=== PATIENT | male | born 1955 | race Caucasian/White ===

== ENCOUNTER 2016-08-30 14:17 | Emergency (ER) | payer MEDICARE, MEDICAID ==
[~2016-08-30] VITALS: Ht 177.8 cm; Wt 69.9 kg
[2016-08-30] MEDS ORDERED: PARO40TA87 PO (14:38)
[2016-08-30] MEDS ORDERED: LIPI20TA PO (14:38)
[2016-08-30] MEDS ORDERED: ASPI81TA85 PO (14:38)
[2016-08-30] MEDS ORDERED: AMLO5TAB2 PO (14:38)
[2016-08-30 16:05] VITALS: BP 113/69
== END 2016-08-30 18:15 | disposition home or self-care (01) ==
LOC: EDBD 14:17 → M ED 15:34
DX: F10.220 Alcohol dependence with intoxication, uncomplicated (principal); J44.9 Chronic obstructive pulmonary disease, unspecified; N40.0 Benign prostatic hyperplasia without lower urinary tract symptoms; E78.9 Disorder of lipoprotein metabolism, unspecified; F17.200 Nicotine dependence, unspecified, uncomplicated; Z88.0 Allergy status to penicillin; Z79.899 Other long term (current) drug therapy; Z79.82 Long term (current) use of aspirin
CPT/HCPCS: 36415; 99285; G0480

== ENCOUNTER → 2017-02-03 | Outpatient (CLI) | payer MEDICARE ==
[~2017-02-03] MED LIST: AMLO5TAB2 PO; ASPI81TA85 PO; LIPI20TA PO; PARO40TA3 PO
[2017-02-03 08:02] LABS: BASO % 0.5 % (0.0-1.0); EOS # 0.2 K/mm3 (0.0-0.50); EOS % 2.8 % (0.0-3.0); LYMPH # 1.4 K/mm3 (1.5-4.5); LYMPH % 21.8 % (24.0-44.0); MEAN CORPUSCULAR HEMOGLOBIN 34.5 pg (27.0-33.0); MEAN CORPUSCULAR HGB CONC 34.1 g/dl (32.0-36.5); MEAN CORPUSCULAR VOLUME 101.1 fl (80.0-96.0); MONO # 0.5 K/mm3 (0.0-0.8); MONO % 7.5 % (0.0-5.0); NEUTROPHILS # 4.2 K/mm3 (1.8-7.7); NEUTROPHILS % 64.2 % (36.0-66.0); RED CELL DISTRIBUTION WIDTH 12.5 % (11.5-14.5); WHITE BLOOD COUNT 6.6 K/mm3 (4.0-10.0)
[2017-02-03 08:30] LABS: ALBUMIN 3.7 GM/DL (3.2-5.2); ALBUMIN/GLOBULIN RATIO 1.28 (1.00-1.93); ALKALINE PHOSPHATASE 85 U/L (45-117); ALT/SGPT 72 U/L (12-78); ANION GAP 9 MEQ/L (8-16); AST/SGOT 61 U/L (15-37); BILIRUBIN,TOTAL 0.3 MG/DL (0.2-1.0); BLOOD UREA NITROGEN 9 MG/DL (7-18); CALCIUM LEVEL 9.4 MG/DL (8.5-10.1); CARBON DIOXIDE LEVEL 29 MEQ/L (21-32); CHLORIDE LEVEL 102 MEQ/L (98-107); CHOLESTEROL LEVEL 187 MG/DL (<200); CREATININE FOR GFR 0.83 MG/DL (0.70-1.30); GLOMERULAR FILTRATION RATE > 60.0 (>56); GLUCOSE, FASTING 91 MG/DL (70-105); POTASSIUM SERUM 4.8 MEQ/L (3.5-5.1); SODIUM LEVEL 140 MEQ/L (136-145); TOTAL PROTEIN 6.6 GM/DL (6.4-8.2); TRIGLYCERIDES LEVEL 67 MG/DL (<150)
--- NOTE | 2017-02-03 13:17 | REP ---
PA and lateral chest: Comparison is 07/06/2013. The lung palmer are clear. The cardiac size is normal The norma, mediastinum, and bony thorax are unremarkable. Impression: Negative PA and lateral chest. There is no interval change. Signed by Dominic Reese MD 02/03/2017 07:49 A
== END ==
LOC: M LAB 07:17
PROVIDERS: ATTEND Physician Assistant Medical
DX: I10 Essential (primary) hypertension (principal); E55.9 Vitamin D deficiency, unspecified; F10.10 Alcohol abuse, uncomplicated

== ENCOUNTER → 2017-09-29 | Outpatient (CLI) | payer MEDICARE ==
[2017-09-29 11:21] LABS: HEMATOCRIT 48.4 % (42.0-52.0); HEMOGLOBIN 16.5 g/dl (13.5-17.5); MEAN CORPUSCULAR HEMOGLOBIN 33.4 pg (27.0-33.0); MEAN CORPUSCULAR HGB CONC 34.1 g/dl (32.0-36.5); PLATELET COUNT, AUTOMATED 237 10^3/uL (150-450); RED BLOOD COUNT 4.94 10^6/uL (4.30-6.10); RED CELL DISTRIBUTION WIDTH 12.8 % (11.5-14.5)
[2017-09-29 11:58] LABS: ALBUMIN 3.7 GM/DL (3.2-5.2); ALBUMIN/GLOBULIN RATIO 1.12 (1.00-1.93); ALKALINE PHOSPHATASE 81 U/L (45-117); ALT/SGPT 49 U/L (12-78); ANION GAP 7 MEQ/L (8-16); AST/SGOT 39 U/L (7-37); BILIRUBIN,TOTAL 0.6 MG/DL (0.2-1.0); BLOOD UREA NITROGEN 13 MG/DL (7-18); CALCIUM LEVEL 9.4 MG/DL (8.8-10.2); CARBON DIOXIDE LEVEL 27 MEQ/L (21-32); CHLORIDE LEVEL 105 MEQ/L (98-107); CHOLESTEROL LEVEL 229 MG/DL (<200); CHOLESTEROL RISK RATIO 2.694 (<5); CREATININE FOR GFR 0.84 MG/DL (0.70-1.30); GLOMERULAR FILTRATION RATE > 60.0 (>49); GLUCOSE, FASTING 85 MG/DL (70-100); HDL CHOLESTEROL 85 MG/DL (>40); LDL CHOLESTEROL 128.6 MG/DL (<100); NON-HDL-C 144 MG/DL; SODIUM LEVEL 139 MEQ/L (136-145); THYROID STIMULATING HORMONE 0.569 uIU/ML (0.358-3.740); TRIGLYCERIDES LEVEL 77 MG/DL (<150)
[2017-09-29 12:00] LABS: POTASSIUM SERUM 5.2 MEQ/L (3.5-5.1)
[2017-09-29 12:11] LABS: TOTAL 25(OH) VITAMIN D 21.3 NG/ML (30.0-100.0)
== END ==
LOC: M LAB 10:25
DX: I10 Essential (primary) hypertension (principal); J44.9 Chronic obstructive pulmonary disease, unspecified; N40.0 Benign prostatic hyperplasia without lower urinary tract symptoms
CPT/HCPCS: 71046

== ENCOUNTER 2017-11-20 16:27 | Emergency (ER) | payer MEDICARE ==
[2017-11-20] MEDS: NS 1,000 ML IV (16:49)
[2017-11-20 16:54] LABS: BASO % 0.5 % (0.0-1.0); EOS # 0.2 10^3/uL (0.0-0.50); EOS % 1.9 % (0.0-3.0); HEMATOCRIT 41.7 % (42.0-52.0); HEMOGLOBIN 14.3 g/dl (13.5-17.5); IMMATURE GRANULOCYTE % 0.1 % (0-3.0); LYMPH # 1.7 10^3/uL (1.5-4.5); LYMPH % 19.8 % (24.0-44.0); MEAN CORPUSCULAR HGB CONC 34.3 g/dl (32.0-36.5); MEAN CORPUSCULAR VOLUME 99.3 fl (80.0-96.0); MONO # 0.7 10^3/uL (0.0-0.8); MONO % 8.6 % (0.0-5.0); NEUTROPHILS # 5.9 10^3/uL (1.8-7.7); NEUTROPHILS % 69.1 % (36.0-66.0); PLATELET COUNT, AUTOMATED 255 10^3/uL (150-450); RED CELL DISTRIBUTION WIDTH 12.7 % (11.5-14.5); WHITE BLOOD COUNT 8.5 10^3/uL (4.0-10.0)
[2017-11-20 17:09] LABS: INR 0.97
[2017-11-20 17:18] LABS: ANION GAP 8 MEQ/L (8-16); BLOOD UREA NITROGEN 11 MG/DL (7-18); CALCIUM LEVEL 8.3 MG/DL (8.8-10.2); CARBON DIOXIDE LEVEL 24 MEQ/L (21-32); CHLORIDE LEVEL 109 MEQ/L (98-107); CPK CREATINE PHOSPHOKINASE 190 U/L (39-308); CREATININE FOR GFR 1.02 MG/DL (0.70-1.30); ETHYL ALCOHOL (ETHANOL) 0.015 % (0.000-0.010); GLOMERULAR FILTRATION RATE > 60.0 (>49); GLUCOSE, FASTING 98 MG/DL (70-100); POTASSIUM SERUM 3.4 MEQ/L (3.5-5.1); SODIUM LEVEL 141 MEQ/L (136-145); TROPONIN I < 0.02 NG/ML (< 0.10)
[2017-11-20 17:24] LABS: CK-MB VALUE MASS 3.5 NG/ML (<3.6); MB/CK RELATIVE INDEX 1.84 (< OR =4); THYROID STIMULATING HORMONE 0.795 uIU/ML (0.358-3.740)
[2017-11-20 18:17] LABS: KETONE, URINE AUTO RFX NEGATIVE (NEGATIVE); NITRITE, URINE AUTO RFX NEGATIVE (NEGATIVE); RBC, URINE AUTO RFX 1 /HPF (0-3); SPECIFIC GRAVITY UR AUTO RFX 1.009 (1.002-1.035); SQUAM EPITHELIAL CELL UR AURFX 0 /HPF (0-6); WBC, URINE AUTO RFX 7 /HPF (0-3)
[2017-11-20 18:20] LABS: LEUKOCYTE ESTERASE UR AUTO RFX TRACE (NEGATIVE)
[2017-11-20 18:27] LABS: AMPHETAMINES LEVEL URINE NEGATIVE (NEGATIVE); BARBITURATES URINE NEGATIVE (NEGATIVE); BENZODIAZEPINES URINE NEGATIVE (NEGATIVE); CANNABINOIDS URINE POSITIVE (NEGATIVE); COCAINE METABOLITE URINE NEGATIVE (NEGATIVE); METHADONE URINE NEGATIVE (NEGATIVE); OPIATES URINE NEGATIVE (NEGATIVE); PHENCYCLIDINE URINE NEGATIVE (NEGATIVE)
== END 2017-11-20 19:29 | disposition home or self-care (01) ==
LOC: M ED 16:27
DX: R55 Syncope and collapse (principal); H81.10 Benign paroxysmal vertigo, unspecified ear; I10 Essential (primary) hypertension; Z88.0 Allergy status to penicillin; Z79.899 Other long term (current) drug therapy; Z79.82 Long term (current) use of aspirin
CPT/HCPCS: 93005

== ENCOUNTER → 2018-03-29 | Outpatient (CLI) | payer MEDICARE ==
[2018-03-29 09:23] LABS: HEMATOCRIT 45.6 % (42.0-52.0); HEMOGLOBIN 15.4 g/dl (13.5-17.5); MEAN CORPUSCULAR HEMOGLOBIN 32.9 pg (27.0-33.0); MEAN CORPUSCULAR HGB CONC 33.8 g/dl (32.0-36.5); MEAN CORPUSCULAR VOLUME 97.4 fl (80.0-96.0); PLATELET COUNT, AUTOMATED 251 10^3/uL (150-450); RED BLOOD COUNT 4.68 10^6/uL (4.30-6.10); RED CELL DISTRIBUTION WIDTH 12.9 % (11.5-14.5); WHITE BLOOD COUNT 7.6 10^3/uL (4.0-10.0)
[2018-03-29 09:55] LABS: ALBUMIN 3.6 GM/DL (3.2-5.2); ALBUMIN/GLOBULIN RATIO 1.09 (1.00-1.93); ALKALINE PHOSPHATASE 82 U/L (45-117); ALT/SGPT 27 U/L (12-78); ANION GAP 8 MEQ/L (8-16); AST/SGOT 19 U/L (7-37); BILIRUBIN,TOTAL 0.5 MG/DL (0.2-1.0); BLOOD UREA NITROGEN 10 MG/DL (7-18); CALCIUM LEVEL 9.4 MG/DL (8.8-10.2); CARBON DIOXIDE LEVEL 27 MEQ/L (21-32); CHLORIDE LEVEL 107 MEQ/L (98-107); CHOLESTEROL LEVEL 179 MG/DL (<200); CHOLESTEROL RISK RATIO 2.452 (<5); CREATININE FOR GFR 0.94 MG/DL (0.70-1.30); GLOMERULAR FILTRATION RATE > 60.0 (>49); GLUCOSE, FASTING 99 MG/DL (70-100); HDL CHOLESTEROL 73 MG/DL (>40); LDL CHOLESTEROL 87 MG/DL (<100); NON-HDL-C 106 MG/DL; POTASSIUM SERUM 4.7 MEQ/L (3.5-5.1); PROSTATIC SPECIFIC AG MONITOR 1.21 NG/ML (< 4.0); SODIUM LEVEL 142 MEQ/L (136-145); THYROID STIMULATING HORMONE 0.566 uIU/ML (0.358-3.740); TOTAL PROTEIN 6.9 GM/DL (6.4-8.2); TRIGLYCERIDES LEVEL 96 MG/DL (<150)
[2018-03-29 09:56] LABS: TOTAL 25(OH) VITAMIN D 95.1 NG/ML (30.0-100.0)
[2018-03-29 09:57] LABS: TESTOSTERONE 694 NG/DL (241-827)
== END ==
LOC: M LAB 08:42
DX: R53.83 Other fatigue (principal); N40.0 Benign prostatic hyperplasia without lower urinary tract symptoms; I10 Essential (primary) hypertension; Z79.899 Other long term (current) drug therapy
CPT/HCPCS: 84403

== ENCOUNTER 2018-06-08 07:04 | Emergency (ER) | payer MEDICARE ==
[2018-06-08] MEDS: NS 1,000 ML IV (07:44)
[2018-06-08 07:45] LABS: BASO # 0.1 10^3/uL (0.0-0.2); EOS # 0.2 10^3/uL (0.0-0.50); EOS % 3.2 % (0.0-3.0); HEMATOCRIT 45.8 % (42.0-52.0); HEMOGLOBIN 15.5 g/dl (13.5-17.5); IMMATURE GRANULOCYTE % 0.2 % (0-3.0); LYMPH # 1.3 10^3/uL (1.5-4.5); LYMPH % 22.7 % (24.0-44.0); MEAN CORPUSCULAR HEMOGLOBIN 32.8 pg (27.0-33.0); MEAN CORPUSCULAR HGB CONC 33.8 g/dl (32.0-36.5); MONO # 0.6 10^3/uL (0.0-0.8); MONO % 9.3 % (0.0-5.0); NEUTROPHILS # 3.8 10^3/uL (1.8-7.7); NEUTROPHILS % 63.6 % (36.0-66.0); PLATELET COUNT, AUTOMATED 239 10^3/uL (150-450); RED BLOOD COUNT 4.72 10^6/uL (4.30-6.10); RED CELL DISTRIBUTION WIDTH 13.1 % (11.5-14.5); WHITE BLOOD COUNT 5.9 10^3/uL (4.0-10.0)
[2018-06-08] MEDS: LOSARTAN 50 MG TAB PO (07:45)
[2018-06-08 07:56] LABS: INR 0.92; PROTHROMBIN TIME 12.4 SECONDS (12.1-14.4)
[2018-06-08 08:22] LABS: ALBUMIN 3.4 GM/DL (3.2-5.2); ALBUMIN/GLOBULIN RATIO 0.97 (1.00-1.93); ALKALINE PHOSPHATASE 78 U/L (45-117); ALT/SGPT 33 U/L (12-78); ANION GAP 6 MEQ/L (8-16); AST/SGOT 24 U/L (7-37); BILIRUBIN,DIRECT 0.2 MG/DL (0.0-0.2); BILIRUBIN,TOTAL 0.6 MG/DL (0.2-1.0); BLOOD UREA NITROGEN 6 MG/DL (7-18); CALCIUM LEVEL 8.9 MG/DL (8.8-10.2); CARBON DIOXIDE LEVEL 27 MEQ/L (21-32); CHLORIDE LEVEL 106 MEQ/L (98-107); CREATININE FOR GFR 0.94 MG/DL (0.70-1.30); GLOMERULAR FILTRATION RATE > 60.0 (>49); GLUCOSE, FASTING 93 MG/DL (70-100); POTASSIUM SERUM 3.9 MEQ/L (3.5-5.1); SODIUM LEVEL 139 MEQ/L (136-145); TOTAL PROTEIN 6.9 GM/DL (6.4-8.2)
[2018-06-08 08:23] LABS: ETHYL ALCOHOL (ETHANOL) < 0.003 % (0.000-0.010)
== END 2018-06-08 11:00 | disposition home or self-care (01) ==
LOC: M ED 07:04
DX: R19.7 Diarrhea, unspecified (principal); I10 Essential (primary) hypertension; M19.90 Unspecified osteoarthritis, unspecified site; F32.9 Major depressive disorder, single episode, unspecified; F17.200 Nicotine dependence, unspecified, uncomplicated; J44.9 Chronic obstructive pulmonary disease, unspecified
CPT/HCPCS: G0480

== ENCOUNTER → 2018-12-15 | Outpatient (CLI) | payer MEDICARE ==
[~2018-12-15] MED LIST changes: -AMLO5TAB2 PO; +AMLO5TAB6 PO
[2018-12-15 11:19] LABS: HEMOGLOBIN 14.4 g/dl (13.5-17.5); MEAN CORPUSCULAR HEMOGLOBIN 32.6 pg (27.0-33.0); MEAN CORPUSCULAR HGB CONC 32.7 g/dl (32.0-36.5); MEAN CORPUSCULAR VOLUME 99.5 fl (80.0-96.0); PLATELET COUNT, AUTOMATED 252 10^3/uL (150-450); RED BLOOD COUNT 4.42 10^6/uL (4.30-6.10); WHITE BLOOD COUNT 8.6 10^3/uL (4.0-10.0)
[2018-12-15 11:46] LABS: HEMOGLOBIN A1c 6.2 %
[2018-12-15 11:51] LABS: ALBUMIN 3.8 GM/DL (3.2-5.2); ALT/SGPT 37 U/L (12-78); BILIRUBIN,TOTAL 0.3 MG/DL (0.2-1.0); BLOOD UREA NITROGEN 11 MG/DL (7-18); CARBON DIOXIDE LEVEL 31 MEQ/L (21-32); CHLORIDE LEVEL 106 MEQ/L (98-107); CHOLESTEROL LEVEL 198 MG/DL (<200); CHOLESTEROL RISK RATIO 2.605 (<5); CREATININE FOR GFR 0.82 MG/DL (0.70-1.30); GLOMERULAR FILTRATION RATE > 60.0 (>49); GLUCOSE, FASTING 81 MG/DL (70-100); HDL CHOLESTEROL 76 MG/DL (>40); LDL CHOLESTEROL 106 MG/DL (<100); NON-HDL-C 122 MG/DL; POTASSIUM SERUM 4.7 MEQ/L (3.5-5.1); SODIUM LEVEL 141 MEQ/L (136-145); TESTOSTERONE 627 NG/DL (241-827); THYROID STIMULATING HORMONE 0.625 uIU/ML (0.358-3.740); TOTAL 25(OH) VITAMIN D 29.7 NG/ML (30.0-100.0); TOTAL PROTEIN 6.9 GM/DL (6.4-8.2); TRIGLYCERIDES LEVEL 80 MG/DL (<150)
--- NOTE | 2018-12-15 12:52 | ECGEPIP ---
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 THERE WAS GOOD R WAVE PROGRESSION Electronically Signed on 12-15-2018 12:52:48 EDT by Marco Chaparro
== END ==
LOC: M LAB 10:20
PROVIDERS: ATTEND Family Medicine
DX: R53.83 Other fatigue (principal); I10 Essential (primary) hypertension; J44.9 Chronic obstructive pulmonary disease, unspecified; E03.9 Hypothyroidism, unspecified; Z79.82 Long term (current) use of aspirin

== ENCOUNTER → 2018-12-23 | Outpatient (CLI) | payer MEDICARE ==
--- NOTE | 2018-12-23 14:12 | REPVR ---
EXAM: MR Head Without Contrast EXAM DATE/TIME: 12/23/2018 10:38 AM CLINICAL HISTORY: 63 years old, male; Pain; Headache; Tension; Patient HX: No priors patient having johnson's and dizziness -sf; Additional info: Headaches and dizziness TECHNIQUE: Imaging protocol: MR of the head without contrast. COMPARISON: No relevant prior studies available. FINDINGS: Brain: There are occasional nonspecific foci of high signal abnormality in the louis radiata and centrum semiovale. These are best seen on the flair images. These foci may represent areas of gliosis, demyelination, and/or chronic ischemic change. Ventricles: Normal. No ventriculomegaly. Bones/joints: Unremarkable. Soft tissues: Normal. Sinuses: There is mild sinus disease. Mastoid air cells: Normal as visualized. No mastoid effusion. Orbits: Unremarkable. IMPRESSION: No acute intracranial abnormality identified. Please refer to incidental findings in body of report. Electronically signed by: Russell Carter On 12/23/2018 14:12:04 PM
== END ==
LOC: M RAD 09:31
PROVIDERS: ATTEND Family Medicine
DX: R51 Headache (principal); R42 Dizziness and giddiness

== ENCOUNTER → 2021-05-08 | Outpatient (CLI) | payer MEDICARE ==
[~2021-05-08] MED LIST changes: +AMLO1TAB24 PO; -AMLO5TAB6 PO; -ASPI81TA85 PO; +ASPI81TA86 PO
--- NOTE | 2021-05-08 15:18 | REP ---
INDICATION: COPD COMPARISON: 09/29/2017 TECHNIQUE: PA and lateral. FINDINGS: The mediastinum and cardiac silhouette are normal. The lung palmer demonstrate chronic emphysematous changes without acute consolidation, effusion, or pneumothorax. The skeletal structures are intact and normal. IMPRESSION: No acute cardiopulmonary process. <Electronically signed by Bony Denis > 05/08/21 [id number]
== END ==
LOC: M RAD 14:50
PROVIDERS: ATTEND Family Medicine
DX: J44.9 Chronic obstructive pulmonary disease, unspecified (principal)

== ENCOUNTER → 2021-08-21 | Outpatient (CLI) | payer MEDICARE, MEDICAID ==
[2021-08-21 12:41] LABS: HEMATOCRIT 47.6 % (42.0-52.0); HEMOGLOBIN 15.5 g/dl (13.5-17.5); MEAN CORPUSCULAR HEMOGLOBIN 30.8 pg (27.0-33.0); MEAN CORPUSCULAR HGB CONC 32.6 g/dl (32.0-36.5); MEAN CORPUSCULAR VOLUME 94.4 fl (80.0-96.0); PLATELET COUNT, AUTOMATED 278 10^3/uL (150-450); RED BLOOD COUNT 5.04 10^6/uL (4.30-6.10); WHITE BLOOD COUNT 8.2 10^3/uL (4.0-10.0)
[2021-08-21 13:15] LABS: ALT/SGPT 38 U/L (12-78); BILIRUBIN,TOTAL 0.4 MG/DL (0.2-1.0); BLOOD UREA NITROGEN 12 MG/DL (7-18); CALCIUM LEVEL 10.3 MG/DL (8.8-10.2); CARBON DIOXIDE LEVEL 28 MEQ/L (21-32); CHLORIDE LEVEL 107 MEQ/L (98-107); CHOLESTEROL LEVEL 198 MG/DL (<200); CHOLESTEROL RISK RATIO 2.275 (<5); CREATININE FOR GFR 0.84 MG/DL (0.70-1.30); GLOMERULAR FILTRATION RATE > 60.0 (>49); GLUCOSE, FASTING 93 MG/DL (70-100); HDL CHOLESTEROL 87 MG/DL (>40); LDL CHOLESTEROL 85 MG/DL (<100); NON-HDL-C 111 MG/DL; SODIUM LEVEL 140 MEQ/L (136-145); THYROID STIMULATING HORMONE 0.744 uIU/ML (0.358-3.740); TOTAL PROTEIN 7.3 GM/DL (6.4-8.2); TRIGLYCERIDES LEVEL 128 MG/DL (<150)
[2021-08-21 13:30] LABS: HEMOGLOBIN A1c 5.5 %
== END ==
LOC: M RAD 11:34
PROVIDERS: ATTEND Family Medicine
DX: D64.9 Anemia, unspecified (principal); E78.00 Pure hypercholesterolemia, unspecified; Z12.5 Encounter for screening for malignant neoplasm of prostate
CPT/HCPCS: 36415; 71046; 80053; 80061; 83036; 84443; 85027; 93005; G0103

== ENCOUNTER 2021-11-04 17:39 | Emergency (ER) | payer MEDICARE, MEDICAID ==
[~2021-11-04] VITALS: Ht 175.3 cm; Wt 65.9 kg
[2021-11-04 20:21] LABS: BASO % 0.4 % (0.0-1.0); EOS # 0.2 10^3/uL (0.0-0.5); EOS % 2.8 % (0.0-3.0); HEMATOCRIT 49.1 % (42.0-52.0); HEMOGLOBIN 16.5 g/dl (13.5-17.5); LYMPH # 1.3 10^3/uL (1.5-5.0); LYMPH % 24.3 % (24.0-44.0); MEAN CORPUSCULAR HEMOGLOBIN 31.1 pg (27.0-33.0); MEAN CORPUSCULAR HGB CONC 33.6 g/dl (32.0-36.5); MEAN CORPUSCULAR VOLUME 92.6 fl (80.0-96.0); MONO # 0.5 10^3/uL (0.0-0.8); MONO % 8.6 % (2.0-8.0); NEUTROPHILS # 3.4 10^3/uL (1.5-8.5); NEUTROPHILS % 63.7 % (36.0-66.0); PLATELET COUNT, AUTOMATED 206 10^3/uL (150-450); WHITE BLOOD COUNT 5.3 10^3/uL (4.0-10.0)
[2021-11-04 20:41] LABS: AMPHETAMINES LEVEL URINE NEGATIVE (NEGATIVE); BARBITURATES URINE NEGATIVE (NEGATIVE); BENZODIAZEPINES URINE NEGATIVE (NEGATIVE); CANNABINOIDS URINE NEGATIVE (NEGATIVE); COCAINE METABOLITE URINE NEGATIVE (NEGATIVE); METHADONE URINE NEGATIVE (NEGATIVE); OPIATES URINE NEGATIVE (NEGATIVE); PHENCYCLIDINE URINE NEGATIVE (NEGATIVE)
[2021-11-04 20:55] LABS: BLOOD UREA NITROGEN 6 MG/DL (7-18); CALCIUM LEVEL 9.4 MG/DL (8.8-10.2); CARBON DIOXIDE LEVEL 22 MEQ/L (21-32); CHLORIDE LEVEL 106 MEQ/L (98-107); CREATININE FOR GFR 0.69 MG/DL (0.70-1.30); ETHYL ALCOHOL (ETHANOL) 0.145 % (0.000-0.010); FREE T4 1.16 NG/DL (0.76-1.46); GLOMERULAR FILTRATION RATE > 60.0 (>49); GLUCOSE, FASTING 88 MG/DL (70-100); MAGNESIUM LEVEL 2.3 MG/DL (1.8-2.4); SODIUM LEVEL 140 MEQ/L (136-145); THYROID STIMULATING HORMONE 0.587 uIU/ML (0.358-3.740)
[2021-11-04 21:45] VITALS: BP 164/99
== END 2021-11-05 01:22 | disposition home or self-care (01) ==
LOC: EDBD 17:39 → M ED 17:39
DX: R55 Syncope and collapse (principal); Z53.20 Procedure and treatment not carried out because of patient's decision for unspecified reasons; I10 Essential (primary) hypertension; F33.9 Major depressive disorder, recurrent, unspecified; Z88.0 Allergy status to penicillin; Z79.82 Long term (current) use of aspirin; Z79.899 Other long term (current) drug therapy

== ENCOUNTER 2022-03-09 10:29 | Emergency (ER) | payer MEDICARE, MEDICAID ==
[~2022-03-09] VITALS: Ht 177.8 cm; Wt 67.2 kg
[2022-03-09 10:30] VITALS: BP 132/79
== END 2022-03-09 10:43 | disposition left against medical advice (07) ==
LOC: M ED 10:29
DX: Z53.21 Procedure and treatment not carried out due to patient leaving prior to being seen by health care provider (principal)

== ENCOUNTER 2022-10-26 20:58 | Emergency (ER) | payer MEDICARE, MEDICAID ==
[~2022-10-26] VITALS: Ht 177.8 cm; Wt 67.0 kg
[2022-10-26] MEDS ORDERED: HYDR1CAP25 (21:26)
[2022-10-26] MEDS ORDERED: FLUO20CA22 (21:26)
[2022-10-26] MEDS ORDERED: RAMI1CAP22 (21:26)
[2022-10-26] MEDS ORDERED: TREL1AER (21:26)
[2022-10-26 21:57] LABS: HEMATOCRIT 43.7 % (42.0-52.0); HEMOGLOBIN 14.2 g/dl (13.5-17.5); MEAN CORPUSCULAR HEMOGLOBIN 32.5 pg (27.0-33.0); MEAN CORPUSCULAR HGB CONC 32.5 g/dl (32.0-36.5); PLATELET COUNT, AUTOMATED 233 10^3/uL (150-450); RED BLOOD COUNT 4.37 10^6/uL (4.30-6.10); WHITE BLOOD COUNT 8.2 10^3/uL (4.0-10.0)
[2022-10-26 22:00] LABS: AMPHETAMINES LEVEL URINE NEGATIVE (NEGATIVE); BARBITURATES URINE NEGATIVE (NEGATIVE); BENZODIAZEPINES URINE NEGATIVE (NEGATIVE); CANNABINOIDS URINE NEGATIVE (NEGATIVE); COCAINE METABOLITE URINE NEGATIVE (NEGATIVE); METHADONE URINE NEGATIVE (NEGATIVE); OPIATES URINE NEGATIVE (NEGATIVE); PHENCYCLIDINE URINE NEGATIVE (NEGATIVE)
[2022-10-26 22:17] LABS: ETHYL ALCOHOL (ETHANOL) 0.261 % (0.000-0.010)
[2022-10-26 22:19] LABS: ACETAMINOPHEN LEVEL < 2.0 UG/ML (10.0-20.0); ALBUMIN 3.8 G/DL (3.2-5.2); ALKALINE PHOSPHATASE 76 U/L (46-116); ALT/SGPT 23 U/L (7.0-40); AST/SGOT 31 U/L (<34); BILIRUBIN,DIRECT < 0.1 MG/DL (<0.4); BILIRUBIN,TOTAL 0.2 MG/DL (0.3-1.2); BLOOD UREA NITROGEN 8 MG/DL (9-23); CALCIUM LEVEL 9.1 MG/DL (8.3-10.6); CARBON DIOXIDE LEVEL 26 MMOL/L (20-31); CHLORIDE LEVEL 103 MMOL/L (98-107); CREATININE FOR GFR 0.96 MG/DL (0.70-1.30); GLOMERULAR FILTRATION RATE > 60.0 (>49); GLUCOSE, FASTING 98 MG/DL (74-106); POTASSIUM SERUM 3.3 MMOL/L (3.5-5.1); SALICYLATE LEVEL < 3.0 MG/DL (<30); SODIUM LEVEL 135 MMOL/L (136-145); TOTAL PROTEIN 6.5 G/DL (5.7-8.2)
[2022-10-26 22:23] LABS: THYROID STIMULATING HORMONE 0.633 uIU/ML (0.55-4.78)
[2022-10-27] MEDS ORDERED: LORazepam 2 MG TAB PO PRN (01:10)
[2022-10-27] MEDS ORDERED: VIST25CA PO (06:00)
[2022-10-27] MEDS ORDERED: RAMI1CAP22 PO (06:00)
[2022-10-27] MEDS ORDERED: VITMTA PO (06:00)
[2022-10-27] MEDS ORDERED: FLUO-96 PO (06:00)
[2022-10-27] MEDS ORDERED: TREL1AER INH (06:00)
[2022-10-27] MEDS ORDERED: BAYE325T13 PO (06:00)
[2022-10-27] MEDS ORDERED: HOME MED LIST COMPLETE! XX SCH (06:05)
[2022-10-27 06:49] VITALS: BP 169/90
[2022-10-27] MEDS ORDERED: FOLIC ACID 1MG TAB PO SCH (09:00)
[2022-10-27] MEDS ORDERED: MULTIVITAMINS/MINERALS THERAP 1 TAB PO SCH (09:00)
[2022-10-27] MEDS ORDERED: THIAMINE 100 MG TAB PO SCH (09:00)
== END 2022-10-27 06:51 | disposition home or self-care (01) ==
LOC: EDBD 20:58 → M ED 20:58
DX: F10.129 Alcohol abuse with intoxication, unspecified (principal); I10 Essential (primary) hypertension; Z88.0 Allergy status to penicillin; Z79.899 Other long term (current) drug therapy; Z79.82 Long term (current) use of aspirin

== ENCOUNTER 2023-01-13 12:22 | Inpatient (IN) | payer MEDICARE ==
[~2023-01-13] VITALS: Ht 177.8 cm; Wt 53.9 kg
[2023-01-13] MEDS: MULTIVITAMINS/MINERALS THERAP 1 TAB PO SCH (09:00)
[2023-01-13] MEDS: FOLIC ACID 1MG TAB PO SCH (09:00)
[~2023-01-13 12:22] MED LIST changes: +BAYE325T13 PO; +BETA5OI TOP; +FLUO-96 PO; +FLUO20CA22; +HYDR1CAP25; +PANT40TA29 PO; +RAMI1CAP22; +RAMI1CAP22 PO; +SUCR1TA PO; +TREL1AER; +TREL1AER INH; +VIST25CA PO; +VITMTA PO
[2023-01-13 13:57] LABS: HEMATOCRIT 35.3 % (42.0-52.0); HEMOGLOBIN 11.1 g/dl (13.5-17.5); MEAN CORPUSCULAR HEMOGLOBIN 29.6 pg (27.0-33.0); MEAN CORPUSCULAR HGB CONC 31.4 g/dl (32.0-36.5); MEAN CORPUSCULAR VOLUME 94.1 fl (80.0-96.0); PLATELET COUNT, AUTOMATED 268 10^3/uL (150-450); RED BLOOD COUNT 3.75 10^6/uL (4.30-6.10); WHITE BLOOD COUNT 6.1 10^3/uL (4.0-10.0)
[2023-01-13 14:20] LABS: CANNABINOIDS URINE NEGATIVE (NEGATIVE); PHENCYCLIDINE URINE NEGATIVE (NEGATIVE)
[2023-01-13 14:21] LABS: AMPHETAMINES LEVEL URINE NEGATIVE (NEGATIVE); BARBITURATES URINE NEGATIVE (NEGATIVE); BENZODIAZEPINES URINE NEGATIVE (NEGATIVE); COCAINE METABOLITE URINE NEGATIVE (NEGATIVE); ETHYL ALCOHOL (ETHANOL) < 0.003 % (0.000-0.010); METHADONE URINE NEGATIVE (NEGATIVE); OPIATES URINE NEGATIVE (NEGATIVE)
[2023-01-13 14:23] LABS: ACETAMINOPHEN LEVEL < 2.0 UG/ML (10.0-20.0); ALBUMIN 3.7 G/DL (3.2-5.2); ALKALINE PHOSPHATASE 101 U/L (46-116); ALT/SGPT 50 U/L (7.0-40); AST/SGOT 26 U/L (<34); BILIRUBIN,DIRECT 0.2 MG/DL (<0.4); BILIRUBIN,TOTAL 0.6 MG/DL (0.3-1.2); BLOOD UREA NITROGEN 10 MG/DL (9-23); CALCIUM LEVEL 9.9 MG/DL (8.3-10.6); CARBON DIOXIDE LEVEL 26 MMOL/L (20-31); CHLORIDE LEVEL 105 MMOL/L (98-107); GLOMERULAR FILTRATION RATE > 60.0 (>49); GLUCOSE, FASTING 99 MG/DL (74-106); POTASSIUM SERUM 4.1 MMOL/L (3.5-5.1); SALICYLATE LEVEL < 3.0 MG/DL (<30); SODIUM LEVEL 139 MMOL/L (136-145); TOTAL PROTEIN 6.5 G/DL (5.7-8.2)
[2023-01-13 14:26] LABS: THYROID STIMULATING HORMONE 0.754 uIU/ML (0.55-4.78)
[2023-01-13] MEDS ORDERED: diphenhydrAMINE 25MG CAP PO PRN (17:05)
[2023-01-13] MEDS ORDERED: LORazepam 2 MG TAB PO PRN (17:05)
[2023-01-13] MEDS ORDERED: MOM 30ML SUSPENSION UDC PO PRN (17:05)
[2023-01-13] MEDS ORDERED: ACETAMINOPHEN TAB 650MG DOSE (2X325MG) PO PRN (17:05)
[2023-01-13] MEDS ORDERED: MAALOX 30 ML SUSP *UDC PO PRN (17:05)
[2023-01-13] MEDS ORDERED: IBUPROFEN 400MG TAB PO PRN (17:05)
[2023-01-13] MEDS ORDERED: NICOTINE 21MG/24HR 1 EA TRANSDERMAL TD PRN (17:05)
[2023-01-13] MEDS: THIAMINE 100 MG TAB PO SCH (19:54)
[2023-01-13] MEDS: PANTOPRAZOLE 40MG TAB (PROTONIX) PO SCH (19:54)
[2023-01-13] MEDS ORDERED: HOME MED LIST COMPLETE! XX SCH (20:30)
[2023-01-13 21:24] VITALS: BP 148/88; TEMP 98.3; O2SAT 100
[2023-01-13] MEDS: SUCRALFATE 1 GM TAB PO SCH (21:54)
[2023-01-13 22:13] VITALS: BP 148/88
[2023-01-14 06:57] VITALS: BP 182/90
[2023-01-14 07:01] VITALS: BP 183/78; TEMP 96.3; O2SAT 100
[2023-01-14 08:24] VITALS: BP 138/88
[2023-01-14] MEDS: PANTOPRAZOLE 40MG TAB (PROTONIX) PO SCH ×2 (08:30→21:22)
[2023-01-14] MEDS: FOLIC ACID 1MG TAB PO SCH (08:30)
[2023-01-14] MEDS: SUCRALFATE 1 GM TAB PO SCH ×4 (08:30→21:22)
[2023-01-14] MEDS: THIAMINE 100 MG TAB PO SCH ×2 (08:30→21:22)
[2023-01-14] MEDS: FLUoxetine 20MG CAP PO SCH (08:30)
[2023-01-14] MEDS: ATORVASTATIN 20 MG TAB PO SCH (08:30)
[2023-01-14] MEDS: MULTIVITAMINS/MINERALS THERAP 1 TAB PO SCH (08:30)
[2023-01-14] MEDS: ramipriL 1.25 MG CAP PO SCH (10:09)
[2023-01-14 10:10] VITALS: BP 138/86
[2023-01-14 14:40] VITALS: BP 143/74
[2023-01-14 18:02] VITALS: BP 143/75; TEMP 97.6
[2023-01-15 06:13] VITALS: BP 148/86; TEMP 97; O2SAT 100
[2023-01-15] MEDS ORDERED: PREVNAR-20 VACCINE 0.5ML SYRINGE IM.IMMUN ONE (09:00)
[2023-01-15] MEDS: MULTIVITAMINS/MINERALS THERAP 1 TAB PO SCH (09:19)
[2023-01-15] MEDS: THIAMINE 100 MG TAB PO SCH ×2 (09:19→21:29)
[2023-01-15] MEDS: FLUoxetine 20MG CAP PO SCH (09:19)
[2023-01-15] MEDS: PANTOPRAZOLE 40MG TAB (PROTONIX) PO SCH ×2 (09:19→21:29)
[2023-01-15] MEDS: ATORVASTATIN 20 MG TAB PO SCH (09:20)
[2023-01-15] MEDS: ramipriL 1.25 MG CAP PO SCH (09:20)
[2023-01-15] MEDS: SUCRALFATE 1 GM TAB PO SCH ×4 (09:20→21:29)
[2023-01-15] MEDS: FOLIC ACID 1MG TAB PO SCH (09:20)
[2023-01-15 14:30] VITALS: BP 150/96
[2023-01-15 18:00] VITALS: BP 150/96; TEMP 97.4; O2SAT 100
[2023-01-15] MEDS: traZODone 50 MG TAB PO PRN (21:29)
[2023-01-16 06:27] VITALS: BP 144/82; TEMP 97.3; O2SAT 100
[2023-01-16] MEDS: FOLIC ACID 1MG TAB PO SCH (09:04)
[2023-01-16] MEDS: FLUoxetine 20MG CAP PO SCH (09:04)
[2023-01-16] MEDS: ATORVASTATIN 20 MG TAB PO SCH (09:04)
[2023-01-16] MEDS: SUCRALFATE 1 GM TAB PO SCH ×4 (09:04→21:02)
[2023-01-16] MEDS: ramipriL 1.25 MG CAP PO SCH (09:05)
[2023-01-16] MEDS: MULTIVITAMINS/MINERALS THERAP 1 TAB PO SCH (09:05)
[2023-01-16] MEDS: PANTOPRAZOLE 40MG TAB (PROTONIX) PO SCH ×2 (09:05→21:02)
[2023-01-16 18:00] VITALS: BP 126/58; TEMP 98.4; O2SAT 100
[2023-01-16] MEDS: traZODone 50 MG TAB PO PRN (21:02)
[2023-01-17 06:01] VITALS: BP 148/74; TEMP 97.4; O2SAT 98
[2023-01-17 09:44] VITALS: BP 110/66
[2023-01-17] MEDS: MULTIVITAMINS/MINERALS THERAP 1 TAB PO SCH (09:45)
[2023-01-17] MEDS: ramipriL 1.25 MG CAP PO SCH (09:45)
[2023-01-17] MEDS: FOLIC ACID 1MG TAB PO SCH (09:46)
[2023-01-17] MEDS: PANTOPRAZOLE 40MG TAB (PROTONIX) PO SCH ×2 (09:46→20:51)
[2023-01-17] MEDS: ATORVASTATIN 20 MG TAB PO SCH (09:46)
[2023-01-17] MEDS: FLUoxetine 20MG CAP PO SCH (09:46)
[2023-01-17] MEDS: SUCRALFATE 1 GM TAB PO SCH ×4 (10:22→20:51)
[2023-01-17 17:58] VITALS: BP 140/90; TEMP 97.6; O2SAT 98
[2023-01-18] MEDS: SUCRALFATE 1 GM TAB PO SCH ×4 (06:39→21:16)
[2023-01-18 06:46] VITALS: BP 149/70; TEMP 97.8; O2SAT 99
[2023-01-18] MEDS: ramipriL 1.25 MG CAP PO SCH (08:59)
[2023-01-18] MEDS: ATORVASTATIN 20 MG TAB PO SCH (09:00)
[2023-01-18] MEDS: MULTIVITAMINS/MINERALS THERAP 1 TAB PO SCH (09:00)
[2023-01-18] MEDS: PANTOPRAZOLE 40MG TAB (PROTONIX) PO SCH ×2 (09:00→21:16)
[2023-01-18] MEDS: FOLIC ACID 1MG TAB PO SCH (09:00)
[2023-01-18] MEDS: FLUoxetine 20MG CAP PO SCH (09:00)
[2023-01-18 16:25] VITALS: BP 154/80; TEMP 97.5; O2SAT 100
[2023-01-19] MEDS: SUCRALFATE 1 GM TAB PO SCH ×4 (06:39→21:03)
[2023-01-19 06:51] VITALS: BP 178/98; TEMP 97.5; O2SAT 99
[2023-01-19 06:55] VITALS: BP 140/82
[2023-01-19 07:09] VITALS: BP 188/83
[2023-01-19] MEDS ORDERED: **hydrALAZINE HCL** 25 MG TAB PO PRN (07:10)
[2023-01-19] MEDS: ramipriL 5 MG CAP PO SCH (09:00)
[2023-01-19 09:04] VITALS: BP 102/56
[2023-01-19] MEDS: ATORVASTATIN 20 MG TAB PO SCH (09:08)
[2023-01-19] MEDS: MULTIVITAMINS/MINERALS THERAP 1 TAB PO SCH (09:08)
[2023-01-19] MEDS: PANTOPRAZOLE 40MG TAB (PROTONIX) PO SCH ×2 (09:08→21:02)
[2023-01-19] MEDS: FOLIC ACID 1MG TAB PO SCH (09:08)
[2023-01-19] MEDS: FLUoxetine 20MG CAP PO SCH (09:08)
[2023-01-19 16:38] VITALS: BP 143/76; TEMP 98.6; O2SAT 100
[2023-01-20 06:19] VITALS: BP 150/90; TEMP 97.7; O2SAT 99
[2023-01-20] MEDS: SUCRALFATE 1 GM TAB PO SCH ×4 (06:48→20:17)
[2023-01-20] MEDS: PANTOPRAZOLE 40MG TAB (PROTONIX) PO SCH ×2 (08:44→20:17)
[2023-01-20] MEDS: FLUoxetine 20MG CAP PO SCH (08:44)
[2023-01-20] MEDS: ramipriL 5 MG CAP PO SCH (08:44)
[2023-01-20] MEDS: MULTIVITAMINS/MINERALS THERAP 1 TAB PO SCH (08:44)
[2023-01-20] MEDS: FOLIC ACID 1MG TAB PO SCH (08:44)
[2023-01-20] MEDS: ATORVASTATIN 20 MG TAB PO SCH (08:44)
[2023-01-20 17:35] VITALS: BP 132/62; TEMP 96.9; O2SAT 98
[2023-01-20] MEDS: traZODone 50 MG TAB PO PRN (21:20)
[2023-01-21 06:25] VITALS: BP 140/70; TEMP 96.9; O2SAT 100
[2023-01-21] MEDS: SUCRALFATE 1 GM TAB PO SCH (06:36)
[2023-01-21 09:26] VITALS: BP 121/77
[2023-01-21] MEDS: PANTOPRAZOLE 40MG TAB (PROTONIX) PO SCH (09:26)
[2023-01-21] MEDS: ATORVASTATIN 20 MG TAB PO SCH (09:26)
[2023-01-21] MEDS: FOLIC ACID 1MG TAB PO SCH (09:26)
[2023-01-21] MEDS: MULTIVITAMINS/MINERALS THERAP 1 TAB PO SCH (09:26)
[2023-01-21] MEDS: ramipriL 5 MG CAP PO SCH (09:26)
[2023-01-21] MEDS: FLUoxetine 20MG CAP PO SCH (09:26)
[2023-01-21] MEDS ORDERED: NICO21PAT TD (09:54)
[2023-01-21] MEDS ORDERED: ALTA1CAP3 PO (09:54)
[2023-01-21] MEDS ORDERED: HYDR25TA PO (09:54)
[2023-01-21] MEDS ORDERED: FLUO40CA PO (09:54)
[2023-01-21] MEDS ORDERED: TRAZ-252 PO (09:54)
== END 2023-01-21 12:40 | disposition home or self-care (01) | DRG 885 ==
LOC: M ED 12:22 → M ED INP 17:11 → M PSY 20:52
PROVIDERS: ADMIT Psychiatry & Neurology Psychiatry; ATTEND Student in an Organized Health Care Education/Training Program
DX: F33.3 Major depressive disorder, recurrent, severe with psychotic symptoms (principal); F10.10 Alcohol abuse, uncomplicated; Z91.52 Personal history of nonsuicidal self-harm; E78.5 Hyperlipidemia, unspecified; I10 Essential (primary) hypertension; F17.200 Nicotine dependence, unspecified, uncomplicated; Z88.0 Allergy status to penicillin; Z79.899 Other long term (current) drug therapy; R41.89 Other symptoms and signs involving cognitive functions and awareness

== ENCOUNTER 2023-02-25 10:50 | Emergency (ER) | payer MEDICARE ==
[~2023-02-25] VITALS: Ht 177.8 cm; Wt 50.6 kg
[~2023-02-25 10:50] MED LIST changes: +ALTA1CAP3 PO; +FLUO40CA PO; +HYDR25TA PO; +NICO21PAT TD; +TRAZ-252 PO
[2023-02-25] MEDS ORDERED: IBUPROFEN 600MG TAB PO ONE (12:45)
[2023-02-25] MEDS ORDERED: BACITRACIN OINTMENT 30GM TUBE TOP STA (12:47)
[2023-02-25] MEDS ORDERED: BOOSTRIX VACCINE (TETANUS/DIPHTH/ACEL. PERTUSSIS) 0.5ML SYR IM ONE (12:50)
[2023-02-25] MEDS ORDERED: BACI500O8 TOP (13:09)
[2023-02-25] MEDS ORDERED: IBUP-1022 PO (13:17)
[2023-02-25 13:21] VITALS: BP 156/93; TEMP 97.8; O2SAT 100
[2023-02-25] MEDS ORDERED: BACIOIN5 OD (18:33)
== END 2023-02-25 13:23 | disposition home or self-care (01) ==
LOC: M ED 10:50
DX: S90.852A Superficial foreign body, left foot, initial encounter (principal); M79.674 Pain in right toe(s); M79.675 Pain in left toe(s); V18.0XXA Pedal cycle driver injured in noncollision transport accident in nontraffic accident, initial encounter; Z23 Encounter for immunization; I10 Essential (primary) hypertension; E78.5 Hyperlipidemia, unspecified; G93.41 Metabolic encephalopathy; Z88.0 Allergy status to penicillin; F17.200 Nicotine dependence, unspecified, uncomplicated

== ENCOUNTER 2023-03-01 06:41 | Emergency (ER) | payer MEDICARE ==
[~2023-03-01] VITALS: Ht 179.1 cm; Wt 60.0 kg
[~2023-03-01 06:41] MED LIST changes: +BACI500O8 TOP; +BACIOIN5 OD; +IBUP-1022 PO
[2023-03-01 07:37] LABS: HEMATOCRIT 40.2 % (42.0-52.0); HEMOGLOBIN 12.4 g/dl (13.5-17.5); MEAN CORPUSCULAR HEMOGLOBIN 29.1 pg (27.0-33.0); MEAN CORPUSCULAR HGB CONC 30.8 g/dl (32.0-36.5); MEAN CORPUSCULAR VOLUME 94.4 fl (80.0-96.0); PLATELET COUNT, AUTOMATED 310 10^3/uL (150-450); RED BLOOD COUNT 4.26 10^6/uL (4.30-6.10); WHITE BLOOD COUNT 8.7 10^3/uL (4.0-10.0)
[2023-03-01 08:06] LABS: ETHYL ALCOHOL (ETHANOL) < 0.003 % (0.000-0.010)
[2023-03-01 08:07] LABS: ACETAMINOPHEN LEVEL < 2.0 UG/ML (10.0-20.0); ALBUMIN 3.7 G/DL (3.2-5.2); ALKALINE PHOSPHATASE 91 U/L (46-116); ALT/SGPT 38 U/L (7.0-40); AST/SGOT 55 U/L (<34); BILIRUBIN,DIRECT 0.1 MG/DL (<0.4); BILIRUBIN,TOTAL 0.4 MG/DL (0.3-1.2); BLOOD UREA NITROGEN 17 MG/DL (9-23); CALCIUM LEVEL 9.6 MG/DL (8.3-10.6); CARBON DIOXIDE LEVEL 23 MMOL/L (20-31); CHLORIDE LEVEL 104 MMOL/L (98-107); CREATININE FOR GFR 0.66 MG/DL (0.70-1.30); GLOMERULAR FILTRATION RATE > 60.0 (>49); GLUCOSE, FASTING 78 MG/DL (74-106); POTASSIUM SERUM 4.4 MMOL/L (3.5-5.1); SALICYLATE LEVEL < 3.0 MG/DL (<30); SODIUM LEVEL 140 MMOL/L (136-145); TOTAL PROTEIN 6.6 G/DL (5.7-8.2)
[2023-03-01] MEDS ORDERED: MED REC IN PROGRESS XX SCH (08:20)
[2023-03-01] MEDS ORDERED: FLUO40CA PO (08:31)
[2023-03-01] MEDS ORDERED: SUCR1TA PO (08:31)
[2023-03-01] MEDS ORDERED: HOME MED LIST COMPLETE! XX SCH (08:35)
[2023-03-01] MEDS: ramipriL 5 MG CAP PO SCH (09:00)
[2023-03-01 09:36] LABS: APPEARANCE, URINE CLEAR (CLEAR); BACTERIA, URINE AUTO NEGATIVE (NEGATIVE); BILIRUBIN, URINE AUTO NEGATIVE (NEGATIVE); BLOOD, URINE BLOOD 1+ (NEGATIVE); COLOR, URINE YELLOW (YELLOW); GLUCOSE, URINE (UA) AUTO NEGATIVE (NEGATIVE); KETONE, URINE AUTO 2+ mg/dL (NEGATIVE); LEUKOCYTE ESTERASE, URINE AUTO TRACE (NEGATIVE); MUCUS, URINE SMALL (NEGATIVE); NITRITE, URINE AUTO NEGATIVE (NEGATIVE); PROTEIN, URINE AUTO NEGATIVE (NEGATIVE); RBC, URINE AUTO 6 /HPF (0-3); SPECIFIC GRAVITY URINE AUTO 1.017 (1.002-1.035); SQUAMOUS EPITHELIAL CELL UR AU 1 /HPF (0-6); UROBILINOGEN, URINE AUTO 0.2 mg/dL (0.0-2.0); WBC, URINE AUTO 14 /HPF (0-3)
[2023-03-01 09:58] LABS: AMPHETAMINES LEVEL URINE NEGATIVE (NEGATIVE); BARBITURATES URINE NEGATIVE (NEGATIVE); BENZODIAZEPINES URINE NEGATIVE (NEGATIVE); CANNABINOIDS URINE NEGATIVE (NEGATIVE); COCAINE METABOLITE URINE NEGATIVE (NEGATIVE); METHADONE URINE NEGATIVE (NEGATIVE); OPIATES URINE NEGATIVE (NEGATIVE); PHENCYCLIDINE URINE NEGATIVE (NEGATIVE)
[2023-03-01] MEDS ORDERED: diphenhydrAMINE 25MG CAP PO PRN (12:15)
[2023-03-01] MEDS ORDERED: ACETAMINOPHEN TAB 650MG DOSE (2X325MG) PO PRN (12:15)
[2023-03-01] MEDS ORDERED: traZODone 50 MG TAB PO PRN (12:15)
[2023-03-01] MEDS ORDERED: MOM 30ML SUSPENSION UDC PO PRN (12:15)
[2023-03-01] MEDS ORDERED: IBUPROFEN 400MG TAB PO PRN (12:15)
[2023-03-01] MEDS ORDERED: MAALOX 30 ML SUSP *UDC PO PRN (12:15)
[2023-03-01] MEDS ORDERED: LORazepam 1 MG TAB PO ONE (15:55)
[2023-03-01] MEDS ORDERED: IBUP-1022 PO (18:25)
[2023-03-01] MEDS ORDERED: PANT40TA29 PO (18:26)
[2023-03-01] MEDS ORDERED: RAMI1CAP24 PO (18:28)
[2023-03-01] MEDS ORDERED: TRAZ-186 PO (18:28)
[2023-03-01] MEDS ORDERED: HYDR-3910 PO (18:32)
[2023-03-02] MEDS ORDERED: LORazepam 1 MG TAB PO STA (06:49)
[2023-03-02] MEDS ORDERED: SUCRALFATE 1 GM TAB PO SCH (07:30)
[2023-03-02] MEDS ORDERED: ADVAIR HFA 115/21MCG INHALER INH SCH (08:00)
[2023-03-02] MEDS ORDERED: TIOTROPIUM INHALER/CAPSULE (SPIRIVA) INH SCH (08:00)
[2023-03-02] MEDS ORDERED: FLUoxetine 20MG CAP PO SCH (09:00)
[2023-03-02] MEDS ORDERED: POLYSPORIN OPHTH OINT 3.5 GM OD SCH (09:00)
[2023-03-02] MEDS ORDERED: PANTOPRAZOLE 40MG TAB (PROTONIX) PO SCH (09:00)
[2023-03-02] MEDS ORDERED: ATORVASTATIN 20 MG TAB PO SCH (09:00)
[2023-03-02 10:06] VITALS: BP 141/90
[2023-03-02] MEDS: ramipriL 5 MG CAP PO SCH (10:06)
[2023-03-02 10:35] VITALS: BP 191/95; TEMP 98; O2SAT 99
== END 2023-03-02 11:05 ==
LOC: M ED 06:41 → M ED INP 12:11 → UNDOADMIN 12:11 → CANBEDREQ 15:11 → M ED 03-02 11:05
DX: F32.A Depression, unspecified (principal); I25.2 Old myocardial infarction; I10 Essential (primary) hypertension; E78.5 Hyperlipidemia, unspecified; F10.10 Alcohol abuse, uncomplicated; Z88.0 Allergy status to penicillin; Z79.02 Long term (current) use of antithrombotics/antiplatelets; Z79.1 Long term (current) use of non-steroidal anti-inflammatories (NSAID); Z79.899 Other long term (current) drug therapy

== ENCOUNTER 2023-04-14 12:23 | Inpatient (IN) | payer MEDICARE ==
[~2023-04-14] VITALS: Ht 177.8 cm; Wt 51.4 kg
[~2023-04-14 12:23] MED LIST changes: +HYDR-3910 PO; +RAMI1CAP24 PO; +TRAZ-186 PO
[2023-04-14] MEDS ORDERED: NS 1,000 ML IV ONE (13:00)
[2023-04-14] MEDS ORDERED: MED REC IN PROGRESS XX SCH (13:05)
[2023-04-14 14:09] LABS: HEMATOCRIT 32.9 % (42.0-52.0); HEMOGLOBIN 10.4 g/dl (13.5-17.5); MEAN CORPUSCULAR HEMOGLOBIN 28.5 pg (27.0-33.0); MEAN CORPUSCULAR HGB CONC 31.6 g/dl (32.0-36.5); MEAN CORPUSCULAR VOLUME 90.1 fl (80.0-96.0); PLATELET COUNT, AUTOMATED 234 10^3/uL (150-450); RED BLOOD COUNT 3.65 10^6/uL (4.30-6.10); WHITE BLOOD COUNT 5.6 10^3/uL (4.0-10.0)
[2023-04-14 14:35] LABS: ETHYL ALCOHOL (ETHANOL) 0.006 % (0.000-0.010)
[2023-04-14 14:36] LABS: ALBUMIN 3.2 G/DL (3.2-5.2); ALKALINE PHOSPHATASE 80 U/L (46-116); ALT/SGPT 17 U/L (7.0-40); AST/SGOT 25 U/L (<34); BILIRUBIN,DIRECT 0.2 MG/DL (<0.4); BILIRUBIN,TOTAL 0.4 MG/DL (0.3-1.2); BLOOD UREA NITROGEN 21 MG/DL (9-23); CALCIUM LEVEL 9.3 MG/DL (8.3-10.6); CARBON DIOXIDE LEVEL 22 MMOL/L (20-31); CHLORIDE LEVEL 99 MMOL/L (98-107); GLOMERULAR FILTRATION RATE > 60.0 (>49); GLUCOSE, FASTING 93 MG/DL (74-106); SALICYLATE LEVEL < 3.0 MG/DL (<30); SODIUM LEVEL 137 MMOL/L (136-145); TOTAL PROTEIN 6.1 G/DL (5.7-8.2)
[2023-04-14 14:39] LABS: THYROID STIMULATING HORMONE 0.755 uIU/ML (0.55-4.78)
[2023-04-14 15:01] LABS: AMPHETAMINES LEVEL URINE NEGATIVE (NEGATIVE); BARBITURATES URINE NEGATIVE (NEGATIVE); CANNABINOIDS URINE NEGATIVE (NEGATIVE); COCAINE METABOLITE URINE NEGATIVE (NEGATIVE); METHADONE URINE NEGATIVE (NEGATIVE); OPIATES URINE NEGATIVE (NEGATIVE); PHENCYCLIDINE URINE NEGATIVE (NEGATIVE)
[2023-04-14 15:02] LABS: BENZODIAZEPINES URINE NEGATIVE (NEGATIVE)
[2023-04-14] MEDS ORDERED: ramipriL 1.25 MG CAP PO SCH (16:00)
[2023-04-14] MEDS ORDERED: **hydrALAZINE HCL** 25 MG TAB PO PRN (16:35)
[2023-04-14] MEDS ORDERED: diphenhydrAMINE 25MG CAP PO PRN (16:35)
[2023-04-14] MEDS ORDERED: MAALOX 30 ML SUSP *UDC PO PRN (16:35)
[2023-04-14] MEDS ORDERED: IBUPROFEN 400MG TAB PO PRN (16:35)
[2023-04-14] MEDS ORDERED: traZODone 50 MG TAB PO PRN (16:35)
[2023-04-14] MEDS ORDERED: HOME MED LIST COMPLETE! XX SCH (16:40)
[2023-04-14 22:15] VITALS: BP 119/62; TEMP 98; O2SAT 98
[2023-04-15 06:07] VITALS: BP 129/63; TEMP 98.6; O2SAT 97
[2023-04-15] MEDS ORDERED: ramipriL 5 MG CAP PO SCH (09:00)
[2023-04-15] MEDS: FLUoxetine 10 MG CAP PO SCH (11:24)
[2023-04-15] MEDS ORDERED: SUCRALFATE 1 GM TAB PO SCH (13:00)
[2023-04-15] MEDS: SUCRALFATE 1 GM TAB PO SCH ×3 (13:08→21:33)
[2023-04-15] MEDS: PANTOPRAZOLE 40MG TAB (PROTONIX) PO SCH ×2 (13:11→21:33)
[2023-04-15 14:35] VITALS: BP 92/58; TEMP 98.3; O2SAT 95
[2023-04-15] MEDS: ramipriL 1.25 MG CAP PO SCH (14:36)
[2023-04-15] MEDS: ACETAMINOPHEN TAB 650MG DOSE (2X325MG) PO PRN (17:23)
[2023-04-15] MEDS: risperiDONE 0.5 MG TAB PO SCH (21:33)
[2023-04-16] MEDS: SUCRALFATE 1 GM TAB PO SCH ×4 (06:34→21:22)
[2023-04-16 06:38] VITALS: BP 104/56; TEMP 96.9; O2SAT 97
[2023-04-16] MEDS: ramipriL 1.25 MG CAP PO SCH (09:00)
[2023-04-16] MEDS: ATORVASTATIN 20 MG TAB PO SCH (09:21)
[2023-04-16] MEDS: FLUoxetine 10 MG CAP PO SCH (09:21)
[2023-04-16] MEDS: PANTOPRAZOLE 40MG TAB (PROTONIX) PO SCH ×2 (09:21→21:22)
[2023-04-16 16:25] VITALS: BP 88/54; TEMP 97.8; O2SAT 99
[2023-04-16] MEDS: risperiDONE 0.5 MG TAB PO SCH (21:21)
[2023-04-17] MEDS: SUCRALFATE 1 GM TAB PO SCH ×4 (06:44→22:07)
[2023-04-17 07:10] VITALS: BP 127/59; TEMP 98.2; O2SAT 99
[2023-04-17] MEDS: ramipriL 1.25 MG CAP PO SCH (09:00)
[2023-04-17] MEDS: PANTOPRAZOLE 40MG TAB (PROTONIX) PO SCH ×2 (09:26→22:06)
[2023-04-17] MEDS: ATORVASTATIN 20 MG TAB PO SCH (09:26)
[2023-04-17] MEDS: FLUoxetine 20MG CAP PO SCH (09:26)
[2023-04-17 16:09] VITALS: BP 111/57; TEMP 98.1; O2SAT 99
[2023-04-17] MEDS: risperiDONE 0.5 MG TAB PO SCH (22:06)
[2023-04-18] MEDS: SUCRALFATE 1 GM TAB PO SCH ×4 (06:30→20:00)
[2023-04-18 06:58] VITALS: BP 129/61; TEMP 97.8; O2SAT 98
[2023-04-18] MEDS: PANTOPRAZOLE 40MG TAB (PROTONIX) PO SCH ×2 (09:43→20:00)
[2023-04-18] MEDS: ATORVASTATIN 20 MG TAB PO SCH (09:43)
[2023-04-18] MEDS: FLUoxetine 20MG CAP PO SCH (09:43)
[2023-04-18] MEDS: ramipriL 1.25 MG CAP PO SCH (09:46)
[2023-04-18 16:18] VITALS: BP 100/55; TEMP 97.6; O2SAT 100
[2023-04-18] MEDS: risperiDONE 1 MG TAB PO SCH (20:00)
[2023-04-19 06:30] VITALS: BP 127/62; TEMP 97.6; O2SAT 98
[2023-04-19] MEDS: SUCRALFATE 1 GM TAB PO SCH ×4 (06:36→20:34)
[2023-04-19] MEDS: PANTOPRAZOLE 40MG TAB (PROTONIX) PO SCH ×2 (09:18→20:34)
[2023-04-19] MEDS: ramipriL 1.25 MG CAP PO SCH (09:18)
[2023-04-19] MEDS: ATORVASTATIN 20 MG TAB PO SCH (09:19)
[2023-04-19] MEDS: FLUoxetine 10 MG CAP PO SCH (09:19)
[2023-04-19 18:01] VITALS: BP 102/68; TEMP 97.4; O2SAT 100
[2023-04-19] MEDS: risperiDONE 1 MG TAB PO SCH (20:34)
[2023-04-20 06:17] VITALS: BP 128/66; TEMP 98.6; O2SAT 100
[2023-04-20] MEDS: SUCRALFATE 1 GM TAB PO SCH ×4 (06:34→20:59)
[2023-04-20] MEDS: PANTOPRAZOLE 40MG TAB (PROTONIX) PO SCH ×2 (09:29→20:59)
[2023-04-20] MEDS: ATORVASTATIN 20 MG TAB PO SCH (09:29)
[2023-04-20] MEDS: FLUoxetine 10 MG CAP PO SCH (09:33)
[2023-04-20] MEDS: ramipriL 1.25 MG CAP PO SCH (09:36)
[2023-04-20 15:44] VITALS: BP 126/55; TEMP 97.9; O2SAT 98
[2023-04-20] MEDS: risperiDONE 1 MG TAB PO SCH (20:59)
[2023-04-21 06:40] VITALS: BP 129/58; TEMP 98.2; O2SAT 96
[2023-04-21] MEDS: SUCRALFATE 1 GM TAB PO SCH ×4 (06:44→21:01)
[2023-04-21] MEDS: ATORVASTATIN 20 MG TAB PO SCH (08:44)
[2023-04-21] MEDS: FLUoxetine 20MG CAP PO SCH (08:44)
[2023-04-21] MEDS: PANTOPRAZOLE 40MG TAB (PROTONIX) PO SCH ×2 (08:44→21:00)
[2023-04-21] MEDS: ramipriL 1.25 MG CAP PO SCH (08:45)
[2023-04-21] MEDS: GABAPENTIN 100 MG CAP PO SCH ×2 (10:58→21:00)
[2023-04-21 16:24] VITALS: BP 121/56; TEMP 97.9; O2SAT 98
[2023-04-21] MEDS: MOM 30ML SUSPENSION UDC PO PRN (17:05)
[2023-04-21] MEDS: risperiDONE 1 MG TAB PO SCH (21:01)
[2023-04-22 06:24] VITALS: BP 140/74; TEMP 98.4; O2SAT 98
[2023-04-22] MEDS: SUCRALFATE 1 GM TAB PO SCH ×4 (06:39→20:41)
[2023-04-22] MEDS: ATORVASTATIN 20 MG TAB PO SCH (08:59)
[2023-04-22] MEDS: PANTOPRAZOLE 40MG TAB (PROTONIX) PO SCH ×2 (08:59→20:40)
[2023-04-22] MEDS: ramipriL 1.25 MG CAP PO SCH (08:59)
[2023-04-22] MEDS: FLUoxetine 20MG CAP PO SCH (08:59)
[2023-04-22] MEDS: GABAPENTIN 100 MG CAP PO SCH ×2 (08:59→20:41)
[2023-04-22 15:50] VITALS: BP 111/61; TEMP 97.2; O2SAT 99
[2023-04-22] MEDS: OLANZapine 5 MG TAB PO SCH (20:41)
[2023-04-23 06:01] VITALS: BP 135/64; TEMP 98.4; O2SAT 98
[2023-04-23] MEDS: SUCRALFATE 1 GM TAB PO SCH ×4 (08:05→20:22)
[2023-04-23] MEDS: GABAPENTIN 100 MG CAP PO SCH ×2 (09:09→20:22)
[2023-04-23] MEDS: PANTOPRAZOLE 40MG TAB (PROTONIX) PO SCH ×2 (09:09→20:21)
[2023-04-23] MEDS: ramipriL 1.25 MG CAP PO SCH (09:09)
[2023-04-23] MEDS: FLUoxetine 20MG CAP PO SCH (09:09)
[2023-04-23] MEDS: ATORVASTATIN 20 MG TAB PO SCH (09:09)
[2023-04-23] MEDS: ACETAMINOPHEN TAB 650MG DOSE (2X325MG) PO PRN (17:17)
[2023-04-23 18:35] VITALS: BP 105/55; TEMP 98.4
[2023-04-23] MEDS: MOM 30ML SUSPENSION UDC PO PRN (19:33)
[2023-04-23] MEDS: OLANZapine 5 MG TAB PO SCH (20:21)
[2023-04-24 05:59] VITALS: BP 141/64; TEMP 98.3; O2SAT 96
[2023-04-24] MEDS: SUCRALFATE 1 GM TAB PO SCH ×4 (06:31→20:43)
[2023-04-24] MEDS: GABAPENTIN 100 MG CAP PO SCH ×2 (09:46→20:43)
[2023-04-24] MEDS: ATORVASTATIN 20 MG TAB PO SCH (09:46)
[2023-04-24] MEDS: PANTOPRAZOLE 40MG TAB (PROTONIX) PO SCH ×2 (09:46→20:43)
[2023-04-24] MEDS: FLUoxetine 20MG CAP PO SCH (09:47)
[2023-04-24] MEDS: ramipriL 1.25 MG CAP PO SCH (09:47)
[2023-04-24 18:00] VITALS: BP 122/57; TEMP 98.8
[2023-04-24] MEDS: MOM 30ML SUSPENSION UDC PO PRN (20:43)
[2023-04-24] MEDS: OLANZapine 5 MG TAB PO SCH (20:43)
[2023-04-25 06:34] VITALS: BP 149/77; TEMP 98.6; O2SAT 98
[2023-04-25] MEDS: SUCRALFATE 1 GM TAB PO SCH ×2 (06:42→11:40)
[2023-04-25 09:09] VITALS: BP 130/70
[2023-04-25] MEDS: ramipriL 1.25 MG CAP PO SCH (09:09)
[2023-04-25] MEDS: GABAPENTIN 100 MG CAP PO SCH (09:09)
[2023-04-25] MEDS: PANTOPRAZOLE 40MG TAB (PROTONIX) PO SCH (09:09)
[2023-04-25] MEDS: FLUoxetine 20MG CAP PO SCH (09:09)
[2023-04-25] MEDS: ATORVASTATIN 20 MG TAB PO SCH (09:09)
[2023-04-25 10:52] LABS: BASO % 0.5 % (0.0-1.0); EOS # 0.4 10^3/uL (0.0-0.5); EOS % 4.9 % (0.0-3.0); HEMATOCRIT 22.1 % (42.0-52.0); LYMPH % 13.8 % (24.0-44.0); MEAN CORPUSCULAR HEMOGLOBIN 27.5 pg (27.0-33.0); MEAN CORPUSCULAR HGB CONC 30.8 g/dl (32.0-36.5); MEAN CORPUSCULAR VOLUME 89.5 fl (80.0-96.0); MONO # 0.9 10^3/uL (0.0-0.8); MONO % 11.6 % (2.0-8.0); NEUTROPHILS # 5.2 10^3/uL (1.5-8.5); NEUTROPHILS % 68.9 % (36.0-66.0); PLATELET COUNT, AUTOMATED 293 10^3/uL (150-450); RED BLOOD COUNT 2.47 10^6/uL (4.30-6.10); WHITE BLOOD COUNT 7.5 10^3/uL (4.0-10.0)
[2023-04-25 10:59] LABS: HEMOGLOBIN 6.8 g/dl (13.5-17.5)
[2023-04-25 11:13] LABS: ALBUMIN 2.5 G/DL (3.2-5.2); ALKALINE PHOSPHATASE 64 U/L (46-116); ALT/SGPT 22 U/L (7.0-40); AST/SGOT 14 U/L (<34); BILIRUBIN,TOTAL 0.2 MG/DL (0.3-1.2); BLOOD UREA NITROGEN 17 MG/DL (9-23); CALCIUM LEVEL 8.9 MG/DL (8.3-10.6); CARBON DIOXIDE LEVEL 27 MMOL/L (20-31); CHLORIDE LEVEL 107 MMOL/L (98-107); CREATININE FOR GFR 0.66 MG/DL (0.70-1.30); GLOMERULAR FILTRATION RATE > 60.0 (>49); GLUCOSE, FASTING 84 MG/DL (74-106); POTASSIUM SERUM 4.2 MMOL/L (3.5-5.1); SODIUM LEVEL 141 MMOL/L (136-145); TOTAL PROTEIN 5.1 G/DL (5.7-8.2)
[2023-04-25 12:14] LABS: HEMATOCRIT 21.9 % (42.0-52.0); MEAN CORPUSCULAR HEMOGLOBIN 27.5 pg (27.0-33.0); MEAN CORPUSCULAR HGB CONC 31.1 g/dl (32.0-36.5); MEAN CORPUSCULAR VOLUME 88.7 fl (80.0-96.0); PLATELET COUNT, AUTOMATED 306 10^3/uL (150-450); RED BLOOD COUNT 2.47 10^6/uL (4.30-6.10); WHITE BLOOD COUNT 7.3 10^3/uL (4.0-10.0)
[2023-04-25 12:16] LABS: HEMOGLOBIN 6.8 g/dl (13.5-17.5)
[2023-04-25] MEDS ORDERED: SUCR1TA PO (12:40)
[2023-04-25] MEDS ORDERED: OLAN1TAB16 PO (12:40)
[2023-04-25] MEDS ORDERED: RAMI1CAP22 PO (14:25)
[2023-04-25] MEDS ORDERED: FLUO20CA22 PO (14:25)
[2023-04-25] MEDS ORDERED: OLAN1TAB20 PO (14:25)
[2023-04-25] MEDS ORDERED: GABA-1171 PO (14:25)
[2023-04-25] MEDS ORDERED: OLANZapine 5 MG TAB PO SCH (21:00)
[2023-04-25] MEDS ORDERED: OLANZapine 10 MG TAB PO SCH (21:00)
[2023-04-26] MEDS ORDERED: FLUoxetine 20MG CAP PO SCH (09:00)
== END 2023-04-25 13:00 | disposition short-term general hospital (02) | DRG 885 ==
LOC: EDBD 12:23 → M ED 12:23 → M ED INP 16:33 → M PSY 22:06
PROVIDERS: ADMIT Student in an Organized Health Care Education/Training Program; ATTEND Student in an Organized Health Care Education/Training Program
DX: F39 Unspecified mood [affective] disorder (principal); R45.851 Suicidal ideations; Z91.51 Personal history of suicidal behavior; E78.5 Hyperlipidemia, unspecified; I10 Essential (primary) hypertension; F17.200 Nicotine dependence, unspecified, uncomplicated; D64.9 Anemia, unspecified; J44.9 Chronic obstructive pulmonary disease, unspecified; F10.20 Alcohol dependence, uncomplicated; K59.00 Constipation, unspecified; R42 Dizziness and giddiness; K21.9 Gastro-esophageal reflux disease without esophagitis; R53.83 Other fatigue; Z79.899 Other long term (current) drug therapy; Z88.0 Allergy status to penicillin

== ENCOUNTER 2023-04-25 12:14 | Inpatient (IN) | payer MEDICARE ==
[2023-04-25] VITALS (10 sets, daily range): BP systolic 108–166; BP diastolic 64–92; TEMP 97.5–98.6; O2SAT 95–98
[~2023-04-25] VITALS: Ht 177.8 cm; Wt 60.0 kg
[2023-04-25] MEDS ORDERED: SUCR1TA PO (12:40)
[2023-04-25] MEDS ORDERED: OLAN1TAB16 PO (12:40)
[2023-04-25 13:00] LABS: IRON (FE) 9 UG/DL (65-175)
[2023-04-25 13:01] LABS: ALBUMIN 2.7 G/DL (3.2-5.2); ALKALINE PHOSPHATASE 67 U/L (46-116); ALT/SGPT 22 U/L (7.0-40); AST/SGOT 13 U/L (<34); BILIRUBIN,TOTAL 0.2 MG/DL (0.3-1.2); BLOOD UREA NITROGEN 18 MG/DL (9-23); CARBON DIOXIDE LEVEL 27 MMOL/L (20-31); CHLORIDE LEVEL 106 MMOL/L (98-107); CREATININE FOR GFR 0.65 MG/DL (0.70-1.30); GLOMERULAR FILTRATION RATE > 60.0 (>49); GLUCOSE, FASTING 87 MG/DL (74-106); PERCENT SATURATION 3.4 % (19.7-50.0); POTASSIUM SERUM 4.2 MMOL/L (3.5-5.1); SODIUM LEVEL 139 MMOL/L (136-145); TOTAL IRON BINDING CAPACITY 262 UG/DL (250-425); TOTAL PROTEIN 5.3 G/DL (5.7-8.2)
[2023-04-25 13:02] LABS: FERRITIN 8.9 NG/ML (10.5-307.3)
[2023-04-25] MEDS ORDERED: HOME MED LIST COMPLETE! XX SCH ×2 (13:20→14:30)
[2023-04-25] MEDS ORDERED: OLAN1TAB20 PO (14:25)
[2023-04-25] MEDS ORDERED: GABA-1171 PO (14:25)
[2023-04-25] MEDS ORDERED: RAMI1CAP22 PO (14:25)
[2023-04-25] MEDS ORDERED: FLUO20CA22 PO (14:25)
[2023-04-25] MEDS ORDERED: MOM 30ML SUSPENSION UDC PO PRN (15:20)
[2023-04-25] MEDS ORDERED: ACETAMINOPHEN TAB 650MG DOSE (2X325MG) PO PRN (15:20)
[2023-04-25] MEDS: SUCRALFATE 1 GM TAB PO SCH ×2 (16:54→20:40)
[2023-04-25 20:29] LABS: HEMATOCRIT 26.3 % (42.0-52.0); HEMOGLOBIN 8.1 g/dl (13.5-17.5); MEAN CORPUSCULAR HEMOGLOBIN 27.3 pg (27.0-33.0); MEAN CORPUSCULAR HGB CONC 30.8 g/dl (32.0-36.5); MEAN CORPUSCULAR VOLUME 88.6 fl (80.0-96.0); PLATELET COUNT, AUTOMATED 277 10^3/uL (150-450); RED BLOOD COUNT 2.97 10^6/uL (4.30-6.10); WHITE BLOOD COUNT 8.4 10^3/uL (4.0-10.0)
[2023-04-25] MEDS: PANTOPRAZOLE 40MG VIAL IV SCH (20:40)
[2023-04-25] MEDS: GABAPENTIN 100 MG CAP PO SCH (20:40)
[2023-04-25] MEDS: OLANZapine 5 MG TAB PO SCH (20:41)
[2023-04-25] MEDS ORDERED: OLANZapine 5 MG TAB PO SCH (21:00)
[2023-04-25] MEDS ORDERED: RAMELTEON 8 MG TAB (ROZEREM) PO ONE (23:15)
[2023-04-26 06:00] VITALS: BP 137/78; TEMP 97.9; O2SAT 96
[2023-04-26 06:06] LABS: HEMATOCRIT 24.9 % (42.0-52.0); MEAN CORPUSCULAR HEMOGLOBIN 28.1 pg (27.0-33.0); MEAN CORPUSCULAR HGB CONC 32.1 g/dl (32.0-36.5); MEAN CORPUSCULAR VOLUME 87.4 fl (80.0-96.0); PLATELET COUNT, AUTOMATED 277 10^3/uL (150-450); RED BLOOD COUNT 2.85 10^6/uL (4.30-6.10); WHITE BLOOD COUNT 7.1 10^3/uL (4.0-10.0)
[2023-04-26 06:38] LABS: ALBUMIN 2.5 G/DL (3.2-5.2); ALKALINE PHOSPHATASE 68 U/L (46-116); ALT/SGPT 19 U/L (7.0-40); AST/SGOT 13 U/L (<34); BILIRUBIN,TOTAL 0.4 MG/DL (0.3-1.2); BLOOD UREA NITROGEN 12 MG/DL (9-23); CALCIUM LEVEL 8.5 MG/DL (8.3-10.6); CARBON DIOXIDE LEVEL 26 MMOL/L (20-31); CHLORIDE LEVEL 106 MMOL/L (98-107); CREATININE FOR GFR 0.65 MG/DL (0.70-1.30); GLOMERULAR FILTRATION RATE > 60.0 (>49); GLUCOSE, FASTING 83 MG/DL (74-106); POTASSIUM SERUM 3.9 MMOL/L (3.5-5.1); SODIUM LEVEL 140 MMOL/L (136-145); TOTAL PROTEIN 5.2 G/DL (5.7-8.2)
[2023-04-26] MEDS ORDERED: **hydrALAZINE HCL** 25 MG TAB PO PRN (06:50)
[2023-04-26] MEDS: PANTOPRAZOLE 40MG VIAL IV SCH ×2 (08:57→20:05)
[2023-04-26] MEDS: FLUoxetine 20MG CAP PO SCH (08:58)
[2023-04-26] MEDS: SUCRALFATE 1 GM TAB PO SCH ×4 (08:58→20:05)
[2023-04-26] MEDS: GABAPENTIN 100 MG CAP PO SCH ×2 (08:59→20:05)
[2023-04-26] MEDS: ATORVASTATIN 20 MG TAB PO SCH (08:59)
[2023-04-26] MEDS: ramipriL 1.25 MG CAP PO SCH (09:01)
[2023-04-26 12:08] LABS: HEMATOCRIT 26.3 % (42.0-52.0); HEMOGLOBIN 8.4 g/dl (13.5-17.5)
[2023-04-26 14:00] VITALS: BP 100/58; TEMP 97.5; O2SAT 95
[2023-04-26 18:20] LABS: HEMOGLOBIN 8.3 g/dl (13.5-17.5)
[2023-04-26 18:56] VITALS: BP 90/52
[2023-04-26] MEDS ORDERED: NS 500 ML IV ONE (19:15)
[2023-04-26 20:02] VITALS: BP 100/59; TEMP 97.9; O2SAT 97
[2023-04-26] MEDS: OLANZapine 5 MG TAB PO SCH (20:05)
[2023-04-26 21:56] LABS: HEMATOCRIT 24.6 % (42.0-52.0); HEMOGLOBIN 7.9 g/dl (13.5-17.5)
[2023-04-27 01:56] LABS: HEMATOCRIT 25.6 % (42.0-52.0); HEMOGLOBIN 8.2 g/dl (13.5-17.5)
[2023-04-27 05:51] VITALS: BP 141/76; TEMP 97.9; O2SAT 96
[2023-04-27] MEDS: GABAPENTIN 100 MG CAP PO SCH ×2 (08:02→22:12)
[2023-04-27] MEDS: SUCRALFATE 1 GM TAB PO SCH ×4 (08:02→22:12)
[2023-04-27] MEDS: ATORVASTATIN 20 MG TAB PO SCH (08:02)
[2023-04-27] MEDS: PANTOPRAZOLE 40MG VIAL IV SCH (08:02)
[2023-04-27] MEDS: FLUoxetine 20MG CAP PO SCH (08:02)
[2023-04-27] MEDS: ramipriL 1.25 MG CAP PO SCH (08:04)
[2023-04-27 08:19] LABS: BASO # 0.1 10^3/uL (0.0-0.2); BASO % 0.8 % (0.0-1.0); EOS # 0.3 10^3/uL (0.0-0.5); EOS % 4.7 % (0.0-3.0); HEMATOCRIT 28.5 % (42.0-52.0); LYMPH # 1.4 10^3/uL (1.5-5.0); LYMPH % 19.4 % (24.0-44.0); MEAN CORPUSCULAR HEMOGLOBIN 27.6 pg (27.0-33.0); MEAN CORPUSCULAR HGB CONC 31.6 g/dl (32.0-36.5); MEAN CORPUSCULAR VOLUME 87.4 fl (80.0-96.0); MONO # 0.8 10^3/uL (0.0-0.8); MONO % 11.2 % (2.0-8.0); NEUTROPHILS # 4.6 10^3/uL (1.5-8.5); NEUTROPHILS % 63.5 % (36.0-66.0); PLATELET COUNT, AUTOMATED 321 10^3/uL (150-450); RED BLOOD COUNT 3.26 10^6/uL (4.30-6.10); WHITE BLOOD COUNT 7.2 10^3/uL (4.0-10.0)
[2023-04-27 14:00] VITALS: BP 106/63; TEMP 97.9; O2SAT 97
[2023-04-27] MEDS ORDERED: FERRIC CARBOXYMALTOSE INJ 750 MG, VIAL MATE ADAPTER 1 EACH in NS 250 ML IV ONE (20:00)
[2023-04-27 20:10] VITALS: BP 107/64; TEMP 97.9; O2SAT 96
[2023-04-27] MEDS: PANTOPRAZOLE 40MG TAB (PROTONIX) PO SCH (22:12)
[2023-04-27] MEDS: OLANZapine 5 MG TAB PO SCH (22:12)
[2023-04-28 06:10] VITALS: BP 139/73; TEMP 97.2; O2SAT 96
[2023-04-28 08:20] VITALS: BP 121/59; TEMP 97.3; O2SAT 97
[2023-04-28] MEDS ORDERED: FERROUS SULFATE 325MG TAB PO SCH (09:00)
[2023-04-28] MEDS: SUCRALFATE 1 GM TAB PO SCH ×2 (09:22→12:53)
[2023-04-28] MEDS ORDERED: FERR1TAB8 PO (10:15)
[2023-04-28] MEDS: PANTOPRAZOLE 40MG TAB (PROTONIX) PO SCH (10:33)
[2023-04-28] MEDS: GABAPENTIN 100 MG CAP PO SCH (10:34)
[2023-04-28] MEDS: ATORVASTATIN 20 MG TAB PO SCH (10:34)
[2023-04-28] MEDS: FLUoxetine 20MG CAP PO SCH (10:35)
[2023-04-28 10:49] VITALS: BP 122/76
[2023-04-28] MEDS: ramipriL 1.25 MG CAP PO SCH (10:49)
== END 2023-04-28 15:40 | disposition home or self-care (01) | DRG 811 ==
LOC: M MSPAV 12:14 → UNDODISIN 04-28 14:40
PROVIDERS: ADMIT Internal Medicine; ATTEND Student in an Organized Health Care Education/Training Program
PROC: 30233N1 Transfusion of Nonautologous Red Blood Cells into Peripheral Vein, Percutaneous Approach (ICD-10-PCS; principal; 2023-04-25)
DX: D50.0 Iron deficiency anemia secondary to blood loss (chronic) (principal); K25.4 Chronic or unspecified gastric ulcer with hemorrhage; E46 Unspecified protein-calorie malnutrition; R45.851 Suicidal ideations; F31.9 Bipolar disorder, unspecified; F10.20 Alcohol dependence, uncomplicated; F17.200 Nicotine dependence, unspecified, uncomplicated; Z91.51 Personal history of suicidal behavior; I10 Essential (primary) hypertension; J44.9 Chronic obstructive pulmonary disease, unspecified; E78.5 Hyperlipidemia, unspecified; Z79.899 Other long term (current) drug therapy; Z88.0 Allergy status to penicillin

== ENCOUNTER 2023-05-04 10:13 | Inpatient (IN) | payer MEDICARE ==
[~2023-05-04] VITALS: Ht 177.8 cm; Wt 60.9 kg
[~2023-05-04 10:13] MED LIST changes: +FERR1TAB8 PO; +FLUO20CA22 PO; +GABA-1171 PO; +OLAN1TAB16 PO; +OLAN1TAB20 PO
[2023-05-04 10:55] LABS: BASO % 0.6 % (0.0-1.0); EOS # 0.2 10^3/uL (0.0-0.5); EOS % 3.2 % (0.0-3.0); HEMATOCRIT 33.6 % (42.0-52.0); HEMOGLOBIN 10.1 g/dl (13.5-17.5); LYMPH # 1.4 10^3/uL (1.5-5.0); LYMPH % 20.5 % (24.0-44.0); MEAN CORPUSCULAR HEMOGLOBIN 26.7 pg (27.0-33.0); MEAN CORPUSCULAR HGB CONC 30.1 g/dl (32.0-36.5); MEAN CORPUSCULAR VOLUME 88.9 fl (80.0-96.0); MONO # 0.7 10^3/uL (0.0-0.8); MONO % 11.2 % (2.0-8.0); NEUTROPHILS # 4.2 10^3/uL (1.5-8.5); NEUTROPHILS % 64.2 % (36.0-66.0); PLATELET COUNT, AUTOMATED 392 10^3/uL (150-450); RED BLOOD COUNT 3.78 10^6/uL (4.30-6.10); WHITE BLOOD COUNT 6.6 10^3/uL (4.0-10.0)
[2023-05-04 11:19] LABS: ETHYL ALCOHOL (ETHANOL) < 0.003 % (0.000-0.010)
[2023-05-04 11:21] LABS: ALBUMIN 3.2 G/DL (3.2-5.2); ALKALINE PHOSPHATASE 94 U/L (46-116); ALT/SGPT 17 U/L (7.0-40); AST/SGOT 16 U/L (<34); BILIRUBIN,DIRECT 0.2 MG/DL (<0.4); BILIRUBIN,TOTAL 0.6 MG/DL (0.3-1.2); BLOOD UREA NITROGEN 11 MG/DL (9-23); CALCIUM LEVEL 9.4 MG/DL (8.3-10.6); CARBON DIOXIDE LEVEL 27 MMOL/L (20-31); CHLORIDE LEVEL 107 MMOL/L (98-107); CPK CREATINE PHOSPHOKINASE 49 U/L (46-171); CREATININE FOR GFR 0.71 MG/DL (0.70-1.30); GLOMERULAR FILTRATION RATE > 60.0 (>49); GLUCOSE, FASTING 93 MG/DL (74-106); POTASSIUM SERUM 4.5 MMOL/L (3.5-5.1); SALICYLATE LEVEL < 3.0 MG/DL (<30); SODIUM LEVEL 143 MMOL/L (136-145); TOTAL PROTEIN 6.7 G/DL (5.7-8.2)
[2023-05-04 11:23] LABS: THYROID STIMULATING HORMONE 0.688 uIU/ML (0.55-4.78)
[2023-05-04 13:00] LABS: AMPHETAMINES LEVEL URINE NEGATIVE (NEGATIVE); BARBITURATES URINE NEGATIVE (NEGATIVE); BENZODIAZEPINES URINE NEGATIVE (NEGATIVE); CANNABINOIDS URINE NEGATIVE (NEGATIVE); COCAINE METABOLITE URINE NEGATIVE (NEGATIVE); METHADONE URINE NEGATIVE (NEGATIVE); OPIATES URINE NEGATIVE (NEGATIVE); PHENCYCLIDINE URINE NEGATIVE (NEGATIVE)
[2023-05-04] MEDS ORDERED: IBUPROFEN 400MG TAB PO PRN (16:50)
[2023-05-04] MEDS ORDERED: MAALOX 30 ML SUSP *UDC PO PRN (16:50)
[2023-05-04] MEDS ORDERED: MED REC IN PROGRESS XX SCH (17:05)
[2023-05-04] MEDS ORDERED: OLAN1TAB20 PO (17:40)
[2023-05-04] MEDS ORDERED: FERR325T3 PO (17:40)
[2023-05-04] MEDS ORDERED: FLUO20CA22 PO (17:40)
[2023-05-04] MEDS ORDERED: HOME MED LIST COMPLETE! XX SCH (17:50)
[2023-05-04] MEDS: traZODone 50 MG TAB PO PRN ×2 (22:05→23:16)
[2023-05-04 23:10] VITALS: BP 121/59; TEMP 99.3; O2SAT 98
[2023-05-05] MEDS: diphenhydrAMINE 25MG CAP PO PRN (02:36)
[2023-05-05 06:44] VITALS: BP 111/59; TEMP 98.8; O2SAT 99
[2023-05-05] MEDS ORDERED: FLUoxetine 20MG CAP PO SCH (09:00)
[2023-05-05] MEDS: PANTOPRAZOLE 40MG TAB (PROTONIX) PO SCH ×2 (14:30→20:44)
[2023-05-05] MEDS: ATORVASTATIN 20 MG TAB PO SCH (14:30)
[2023-05-05] MEDS: FERROUS SULFATE 325MG TAB PO SCH (14:30)
[2023-05-05 17:11] VITALS: BP 123/67; TEMP 97.8; O2SAT 99
[2023-05-05] MEDS: SUCRALFATE 1 GM TAB PO SCH ×2 (17:42→20:44)
[2023-05-05] MEDS: OLANZapine 10 MG TAB PO SCH (20:44)
[2023-05-05] MEDS: ADVAIR HFA 115/21MCG INHALER INH SCH (20:44)
[2023-05-05] MEDS ORDERED: PALIPERIDONE 3MG ER TAB (INVEGA) PO SCH (21:00)
[2023-05-05] MEDS: MOM 30ML SUSPENSION UDC PO PRN (23:23)
[2023-05-06 06:18] VITALS: BP 134/65; TEMP 99.1; O2SAT 94
[2023-05-06] MEDS: SUCRALFATE 1 GM TAB PO SCH ×4 (07:00→20:50)
[2023-05-06] MEDS: PANTOPRAZOLE 40MG TAB (PROTONIX) PO SCH ×2 (08:28→20:50)
[2023-05-06] MEDS: FERROUS SULFATE 325MG TAB PO SCH (08:28)
[2023-05-06] MEDS: TIOTROPIUM INHALER/CAPSULE (SPIRIVA) INH SCH (08:28)
[2023-05-06] MEDS: ATORVASTATIN 20 MG TAB PO SCH (08:28)
[2023-05-06] MEDS: FLUoxetine 20MG CAP PO SCH (08:28)
[2023-05-06] MEDS: ADVAIR HFA 115/21MCG INHALER INH SCH ×2 (08:28→20:50)
[2023-05-06 18:00] VITALS: BP 130/65; TEMP 99; O2SAT 97
[2023-05-06] MEDS: OLANZapine 10 MG TAB PO SCH (20:50)
[2023-05-06] MEDS: traZODone 50 MG TAB PO PRN (23:54)
[2023-05-07] MEDS: ACETAMINOPHEN TAB 650MG DOSE (2X325MG) PO PRN (04:47)
[2023-05-07 06:48] VITALS: BP 142/73; TEMP 98.3; O2SAT 98
[2023-05-07] MEDS: SUCRALFATE 1 GM TAB PO SCH ×4 (06:52→20:14)
[2023-05-07] MEDS: FLUoxetine 20MG CAP PO SCH (08:22)
[2023-05-07] MEDS: PANTOPRAZOLE 40MG TAB (PROTONIX) PO SCH ×2 (08:22→20:14)
[2023-05-07] MEDS: ATORVASTATIN 20 MG TAB PO SCH (08:22)
[2023-05-07] MEDS: FERROUS SULFATE 325MG TAB PO SCH (08:22)
[2023-05-07] MEDS: ADVAIR HFA 115/21MCG INHALER INH SCH ×2 (08:23→20:13)
[2023-05-07] MEDS: TIOTROPIUM INHALER/CAPSULE (SPIRIVA) INH SCH (08:23)
[2023-05-07 19:29] VITALS: BP 125/82; TEMP 98.7; O2SAT 97
[2023-05-07] MEDS: MOM 30ML SUSPENSION UDC PO PRN (20:12)
[2023-05-07] MEDS: traZODone 50 MG TAB PO PRN (20:13)
[2023-05-07] MEDS: OLANZapine 10 MG TAB PO SCH (20:14)
[2023-05-08] MEDS: diphenhydrAMINE 25MG CAP PO PRN (02:38)
[2023-05-08 05:01] VITALS: BP 141/66; TEMP 98.3; O2SAT 99
[2023-05-08] MEDS: SUCRALFATE 1 GM TAB PO SCH ×4 (06:33→20:27)
[2023-05-08] MEDS: ADVAIR HFA 115/21MCG INHALER INH SCH ×2 (08:23→20:26)
[2023-05-08] MEDS: FERROUS SULFATE 325MG TAB PO SCH (08:23)
[2023-05-08] MEDS: TIOTROPIUM INHALER/CAPSULE (SPIRIVA) INH SCH (08:23)
[2023-05-08] MEDS: ATORVASTATIN 20 MG TAB PO SCH (08:24)
[2023-05-08] MEDS: ramipriL 1.25 MG CAP PO SCH (08:24)
[2023-05-08] MEDS: PANTOPRAZOLE 40MG TAB (PROTONIX) PO SCH ×2 (08:24→20:27)
[2023-05-08] MEDS: FLUoxetine 20MG CAP PO SCH (08:24)
[2023-05-08 18:30] VITALS: BP 109/68; TEMP 98.4; O2SAT 100
[2023-05-08] MEDS: MOM 30ML SUSPENSION UDC PO PRN (20:27)
[2023-05-08] MEDS: OLANZapine 10 MG TAB PO SCH (20:27)
[2023-05-09 06:36] VITALS: BP 130/67; TEMP 98.3; O2SAT 96
[2023-05-09] MEDS: SUCRALFATE 1 GM TAB PO SCH ×4 (06:44→20:49)
[2023-05-09] MEDS: TIOTROPIUM INHALER/CAPSULE (SPIRIVA) INH SCH (08:38)
[2023-05-09] MEDS: ATORVASTATIN 20 MG TAB PO SCH (08:38)
[2023-05-09] MEDS: FLUoxetine 20MG CAP PO SCH (08:38)
[2023-05-09] MEDS: ADVAIR HFA 115/21MCG INHALER INH SCH ×2 (08:39→20:38)
[2023-05-09] MEDS: ramipriL 1.25 MG CAP PO SCH (08:43)
[2023-05-09] MEDS: FERROUS SULFATE 325MG TAB PO SCH (08:44)
[2023-05-09] MEDS: PANTOPRAZOLE 40MG TAB (PROTONIX) PO SCH ×2 (08:44→20:49)
[2023-05-09 16:20] VITALS: BP 106/54; TEMP 98.2; O2SAT 100
[2023-05-09] MEDS: OLANZapine 10 MG TAB PO SCH (20:49)
[2023-05-09] MEDS: MOM 30ML SUSPENSION UDC PO PRN (22:47)
[2023-05-10] MEDS: ACETAMINOPHEN TAB 650MG DOSE (2X325MG) PO PRN (01:27)
[2023-05-10 06:32] VITALS: BP 141/74; TEMP 97.7; O2SAT 99
[2023-05-10] MEDS: SUCRALFATE 1 GM TAB PO SCH ×4 (06:48→20:07)
[2023-05-10] MEDS: FERROUS SULFATE 325MG TAB PO SCH (09:07)
[2023-05-10] MEDS: ramipriL 1.25 MG CAP PO SCH (09:07)
[2023-05-10] MEDS: PANTOPRAZOLE 40MG TAB (PROTONIX) PO SCH ×2 (09:07→20:07)
[2023-05-10] MEDS: FLUoxetine 20MG CAP PO SCH (09:07)
[2023-05-10] MEDS: ATORVASTATIN 20 MG TAB PO SCH (09:07)
[2023-05-10] MEDS: TIOTROPIUM INHALER/CAPSULE (SPIRIVA) INH SCH (09:09)
[2023-05-10] MEDS: ADVAIR HFA 115/21MCG INHALER INH SCH ×2 (09:09→20:09)
[2023-05-10] MEDS: DIVALPROEX 125 MG TAB PO SCH ×2 (10:46→20:09)
[2023-05-10] MEDS: PALIPERIDONE 3MG ER TAB (INVEGA) PO SCH ×2 (10:48→20:09)
[2023-05-10 16:36] VITALS: BP 114/68; TEMP 98.5; O2SAT 99
[2023-05-10] MEDS: diphenhydrAMINE 25MG CAP PO PRN (21:43)
[2023-05-11] MEDS: SUCRALFATE 1 GM TAB PO SCH ×4 (07:01→20:20)
[2023-05-11] MEDS: ADVAIR HFA 115/21MCG INHALER INH SCH ×2 (08:38→20:23)
[2023-05-11] MEDS: TIOTROPIUM INHALER/CAPSULE (SPIRIVA) INH SCH (08:38)
[2023-05-11] MEDS: DIVALPROEX 125 MG TAB PO SCH ×2 (08:39→20:20)
[2023-05-11] MEDS: FERROUS SULFATE 325MG TAB PO SCH (08:39)
[2023-05-11] MEDS: ATORVASTATIN 20 MG TAB PO SCH (08:40)
[2023-05-11] MEDS: PANTOPRAZOLE 40MG TAB (PROTONIX) PO SCH ×2 (08:41→20:20)
[2023-05-11] MEDS: ramipriL 1.25 MG CAP PO SCH (08:44)
[2023-05-11] MEDS: diphenhydrAMINE 25MG CAP PO PRN (08:47)
[2023-05-11] MEDS ORDERED: FLUoxetine 20MG CAP PO SCH (09:00)
[2023-05-11] MEDS: PALIPERIDONE 3MG ER TAB (INVEGA) PO SCH ×2 (09:43→20:41)
[2023-05-11 16:12] VITALS: BP 124/62; TEMP 98.8; O2SAT 96
[2023-05-11] MEDS ORDERED: PALIPERIDONE 3MG ER TAB (INVEGA) PO SCH (21:00)
[2023-05-11] MEDS: traZODone 50 MG TAB PO PRN (22:37)
[2023-05-12] MEDS: CHLORASEPTIC SPRAY MT PRN ×2 (00:01→13:15)
[2023-05-12] MEDS: ACETAMINOPHEN TAB 650MG DOSE (2X325MG) PO PRN (01:52)
[2023-05-12 06:34] VITALS: BP 122/76; TEMP 97.9; O2SAT 100
[2023-05-12] MEDS: SUCRALFATE 1 GM TAB PO SCH ×4 (06:35→21:10)
[2023-05-12] MEDS: PALIPERIDONE 3MG ER TAB (INVEGA) PO SCH (08:20)
[2023-05-12] MEDS: ramipriL 1.25 MG CAP PO SCH (08:22)
[2023-05-12] MEDS: FERROUS SULFATE 325MG TAB PO SCH (08:22)
[2023-05-12] MEDS: TIOTROPIUM INHALER/CAPSULE (SPIRIVA) INH SCH (08:23)
[2023-05-12] MEDS: ADVAIR HFA 115/21MCG INHALER INH SCH ×2 (08:23→21:09)
[2023-05-12] MEDS: ATORVASTATIN 20 MG TAB PO SCH (08:24)
[2023-05-12] MEDS: PANTOPRAZOLE 40MG TAB (PROTONIX) PO SCH ×2 (08:25→21:10)
[2023-05-12] MEDS ORDERED: DIVALPROEX 250MG TAB PO SCH (09:00)
[2023-05-12 14:35] VITALS: BP 106/55; TEMP 100; O2SAT 96
[2023-05-12 15:55] LABS: HEMATOCRIT 28.3 % (42.0-52.0); HEMOGLOBIN 8.9 g/dl (13.5-17.5); MEAN CORPUSCULAR HEMOGLOBIN 27.1 pg (27.0-33.0); MEAN CORPUSCULAR HGB CONC 31.4 g/dl (32.0-36.5); MEAN CORPUSCULAR VOLUME 86.3 fl (80.0-96.0); PLATELET COUNT, AUTOMATED 407 10^3/uL (150-450); RED BLOOD COUNT 3.28 10^6/uL (4.30-6.10); WHITE BLOOD COUNT 6.3 10^3/uL (4.0-10.0)
[2023-05-12 19:04] VITALS: BP 92/60; TEMP 98.4; O2SAT 95
[2023-05-12 19:58] VITALS: BP 124/59; TEMP 98.7; O2SAT 99
[2023-05-12 19:59] LABS: HEMATOCRIT 30.3 % (42.0-52.0); HEMOGLOBIN 9.3 g/dl (13.5-17.5)
[2023-05-12] MEDS: traZODone 50 MG TAB PO PRN (21:10)
[2023-05-12] MEDS: diphenhydrAMINE 25MG CAP PO PRN (21:10)
[2023-05-12 22:40] VITALS: BP 101/57; TEMP 98; O2SAT 98
[2023-05-13 06:35] VITALS: BP 130/66; TEMP 98.9; O2SAT 100
[2023-05-13] MEDS: SUCRALFATE 1 GM TAB PO SCH ×2 (06:51→11:27)
[2023-05-13] MEDS: FERROUS SULFATE 325MG TAB PO SCH (08:37)
[2023-05-13] MEDS: DIVALPROEX 125 MG TAB PO SCH ×2 (08:37→20:11)
[2023-05-13] MEDS: ATORVASTATIN 20 MG TAB PO SCH (08:37)
[2023-05-13] MEDS: PANTOPRAZOLE 40MG TAB (PROTONIX) PO SCH ×2 (08:37→20:11)
[2023-05-13] MEDS: TIOTROPIUM INHALER/CAPSULE (SPIRIVA) INH SCH (08:37)
[2023-05-13] MEDS: ADVAIR HFA 115/21MCG INHALER INH SCH ×2 (08:38→20:11)
[2023-05-13] MEDS: ramipriL 1.25 MG CAP PO SCH (08:38)
[2023-05-13] MEDS: ACETAMINOPHEN TAB 650MG DOSE (2X325MG) PO PRN (15:56)
[2023-05-13 17:03] VITALS: BP 105/61; TEMP 97.6
[2023-05-13] MEDS: SUCRALFATE SUSP 1GM/10ML UD PO SCH ×2 (17:28→20:11)
[2023-05-13] MEDS: PALIPERIDONE 3MG ER TAB (INVEGA) PO SCH (20:11)
[2023-05-13] MEDS: CHLORASEPTIC SPRAY MT PRN (20:14)
[2023-05-14 06:31] VITALS: BP 138/90; TEMP 98.5; O2SAT 99
[2023-05-14] MEDS: ADVAIR HFA 115/21MCG INHALER INH SCH ×2 (07:30→20:00)
[2023-05-14] MEDS: TIOTROPIUM INHALER/CAPSULE (SPIRIVA) INH SCH (07:30)
[2023-05-14] MEDS: SUCRALFATE SUSP 1GM/10ML UD PO SCH ×4 (07:30→20:01)
[2023-05-14] MEDS: PANTOPRAZOLE 40MG TAB (PROTONIX) PO SCH ×2 (08:15→20:00)
[2023-05-14] MEDS: FERROUS SULFATE 325MG TAB PO SCH (08:15)
[2023-05-14] MEDS: ATORVASTATIN 20 MG TAB PO SCH (08:15)
[2023-05-14] MEDS: CHLORASEPTIC SPRAY MT PRN (08:15)
[2023-05-14] MEDS: DIVALPROEX 125 MG TAB PO SCH ×2 (08:15→20:00)
[2023-05-14] MEDS: ramipriL 1.25 MG CAP PO SCH (08:15)
[2023-05-14 13:12] VITALS: TEMP 99
[2023-05-14 16:12] VITALS: BP 110/60; TEMP 97.9; O2SAT 99
[2023-05-14] MEDS: MOM 30ML SUSPENSION UDC PO PRN (19:59)
[2023-05-14] MEDS: PALIPERIDONE 3MG ER TAB (INVEGA) PO SCH (20:00)
[2023-05-15 06:49] VITALS: BP 108/66; TEMP 97.2; O2SAT 97
[2023-05-15] MEDS: SUCRALFATE SUSP 1GM/10ML UD PO SCH ×4 (06:54→20:32)
[2023-05-15] MEDS: DIVALPROEX 125 MG TAB PO SCH ×2 (08:09→20:31)
[2023-05-15] MEDS: ADVAIR HFA 115/21MCG INHALER INH SCH ×2 (08:09→20:32)
[2023-05-15] MEDS: FERROUS SULFATE 325MG TAB PO SCH (08:09)
[2023-05-15] MEDS: TIOTROPIUM INHALER/CAPSULE (SPIRIVA) INH SCH (08:10)
[2023-05-15] MEDS: ATORVASTATIN 20 MG TAB PO SCH (08:10)
[2023-05-15] MEDS: PANTOPRAZOLE 40MG TAB (PROTONIX) PO SCH ×2 (08:10→20:32)
[2023-05-15] MEDS: CHLORASEPTIC SPRAY MT PRN ×2 (08:12→20:32)
[2023-05-15] MEDS: ramipriL 1.25 MG CAP PO SCH (08:46)
[2023-05-15] MEDS: ACETAMINOPHEN TAB 650MG DOSE (2X325MG) PO PRN (14:53)
[2023-05-15] MEDS: diphenhydrAMINE 25MG CAP PO PRN (14:53)
[2023-05-15 16:16] VITALS: BP 118/78; TEMP 98.4; O2SAT 97
[2023-05-15] MEDS: PALIPERIDONE 3MG ER TAB (INVEGA) PO SCH (20:31)
[2023-05-15] MEDS: MOM 30ML SUSPENSION UDC PO PRN (20:32)
[2023-05-16 05:28] VITALS: BP 129/77; TEMP 97.2; O2SAT 97
[2023-05-16] MEDS: SUCRALFATE SUSP 1GM/10ML UD PO SCH ×4 (07:43→20:43)
[2023-05-16 08:19] VITALS: BP 137/76
[2023-05-16] MEDS: ramipriL 1.25 MG CAP PO SCH (08:20)
[2023-05-16] MEDS: TIOTROPIUM INHALER/CAPSULE (SPIRIVA) INH SCH (08:26)
[2023-05-16] MEDS: ADVAIR HFA 115/21MCG INHALER INH SCH ×2 (08:26→20:45)
[2023-05-16] MEDS: PALIPERIDONE 3MG ER TAB (INVEGA) PO SCH ×2 (08:26→20:43)
[2023-05-16] MEDS: ATORVASTATIN 20 MG TAB PO SCH (08:27)
[2023-05-16] MEDS: PANTOPRAZOLE 40MG TAB (PROTONIX) PO SCH ×2 (08:27→20:44)
[2023-05-16] MEDS: DIVALPROEX 125 MG TAB PO SCH (08:27)
[2023-05-16] MEDS: FERROUS SULFATE 325MG TAB PO SCH (08:27)
[2023-05-16] MEDS: CHLORASEPTIC SPRAY MT PRN ×2 (08:28→20:44)
[2023-05-16 16:32] VITALS: BP 115/84; TEMP 99.1
[2023-05-16] MEDS: MOM 30ML SUSPENSION UDC PO PRN (20:41)
[2023-05-16] MEDS: traZODone 50 MG TAB PO PRN (20:44)
[2023-05-16] MEDS: DIVALPROEX 250MG TAB PO SCH (20:44)
[2023-05-17 06:48] VITALS: BP 139/62; TEMP 99.1; O2SAT 97
[2023-05-17] MEDS: SUCRALFATE SUSP 1GM/10ML UD PO SCH ×4 (06:53→20:04)
[2023-05-17] MEDS ORDERED: traZODone 50 MG TAB PO PRN (08:10)
[2023-05-17] MEDS: ADVAIR HFA 115/21MCG INHALER INH SCH ×2 (08:58→20:03)
[2023-05-17] MEDS: TIOTROPIUM INHALER/CAPSULE (SPIRIVA) INH SCH (08:58)
[2023-05-17] MEDS: ramipriL 1.25 MG CAP PO SCH (09:00)
[2023-05-17 09:23] VITALS: BP 137/68
[2023-05-17] MEDS: PALIPERIDONE 3MG ER TAB (INVEGA) PO SCH ×2 (09:24→20:04)
[2023-05-17] MEDS: FERROUS SULFATE 325MG TAB PO SCH (09:24)
[2023-05-17] MEDS: DIVALPROEX 125 MG TAB PO SCH (09:24)
[2023-05-17] MEDS: ATORVASTATIN 20 MG TAB PO SCH (09:24)
[2023-05-17] MEDS: PANTOPRAZOLE 40MG TAB (PROTONIX) PO SCH ×2 (09:24→20:04)
[2023-05-17] MEDS: CHLORASEPTIC SPRAY MT PRN ×2 (15:51→20:03)
[2023-05-17 18:57] VITALS: BP 142/69; TEMP 98.4
[2023-05-17] MEDS: DIVALPROEX 250MG TAB PO SCH (20:05)
[2023-05-17] MEDS: MOM 30ML SUSPENSION UDC PO PRN (20:52)
[2023-05-18 06:21] VITALS: BP 152/88; TEMP 98.7; O2SAT 100
[2023-05-18] MEDS: SUCRALFATE SUSP 1GM/10ML UD PO SCH ×4 (06:30→20:24)
[2023-05-18] MEDS: ADVAIR HFA 115/21MCG INHALER INH SCH ×2 (08:29→20:23)
[2023-05-18] MEDS: CHLORASEPTIC SPRAY MT PRN (08:29)
[2023-05-18] MEDS: TIOTROPIUM INHALER/CAPSULE (SPIRIVA) INH SCH (08:30)
[2023-05-18] MEDS: ATORVASTATIN 20 MG TAB PO SCH (08:32)
[2023-05-18] MEDS: PANTOPRAZOLE 40MG TAB (PROTONIX) PO SCH ×2 (08:32→20:24)
[2023-05-18] MEDS: FERROUS SULFATE 325MG TAB PO SCH (08:32)
[2023-05-18] MEDS: DIVALPROEX 250MG TAB PO SCH ×2 (08:32→20:24)
[2023-05-18] MEDS: ramipriL 1.25 MG CAP PO SCH (08:32)
[2023-05-18] MEDS: PALIPERIDONE 3MG ER TAB (INVEGA) PO SCH ×2 (08:32→20:24)
[2023-05-18 17:46] VITALS: BP 133/63; TEMP 98.3; O2SAT 98
[2023-05-18] MEDS ORDERED: traZODone 25MG PER 1/2 TABLET PO SCH (21:00)
[2023-05-19] MEDS: diphenhydrAMINE 25MG CAP PO PRN (00:22)
[2023-05-19 06:36] VITALS: BP 110/98; TEMP 98; O2SAT 99
[2023-05-19] MEDS: SUCRALFATE SUSP 1GM/10ML UD PO SCH ×2 (06:46→11:51)
[2023-05-19] MEDS: DIVALPROEX 250MG TAB PO SCH (08:58)
[2023-05-19] MEDS: TIOTROPIUM INHALER/CAPSULE (SPIRIVA) INH SCH (08:58)
[2023-05-19] MEDS: ADVAIR HFA 115/21MCG INHALER INH SCH (08:58)
[2023-05-19 08:59] VITALS: BP 145/71
[2023-05-19] MEDS: ATORVASTATIN 20 MG TAB PO SCH (08:59)
[2023-05-19] MEDS: PALIPERIDONE 3MG ER TAB (INVEGA) PO SCH (08:59)
[2023-05-19] MEDS: CHLORASEPTIC SPRAY MT PRN (08:59)
[2023-05-19] MEDS: FERROUS SULFATE 325MG TAB PO SCH (08:59)
[2023-05-19] MEDS: PANTOPRAZOLE 40MG TAB (PROTONIX) PO SCH (08:59)
[2023-05-19] MEDS: ramipriL 1.25 MG CAP PO SCH (08:59)
[2023-05-19] MEDS: ACETAMINOPHEN TAB 650MG DOSE (2X325MG) PO PRN (10:13)
[2023-05-19] MEDS ORDERED: TIOT18INH INH (10:40)
[2023-05-19] MEDS ORDERED: SUCR1ORA PO (10:40)
[2023-05-19] MEDS ORDERED: PALI1TAB2 PO (10:40)
[2023-05-19] MEDS ORDERED: DEPA250T32 PO ×2 (10:40)
[2023-05-19] MEDS ORDERED: TRAZ-252 PO (10:40)
[2023-05-19] MEDS ORDERED: PANT40TA29 PO (10:40)
[2023-05-19] MEDS ORDERED: ALTA1CAP PO (10:40)
[2023-05-19] MEDS ORDERED: ATOR1TAB21 PO (10:40)
[2023-05-19] MEDS ORDERED: FERR1TAB8 PO (10:40)
== END 2023-05-19 12:55 | disposition home or self-care (01) | DRG 885 ==
LOC: M ED 10:13 → EDBD 10:13 → M ED INP 16:47 → M PSY 22:31
PROVIDERS: ADMIT Student in an Organized Health Care Education/Training Program; ATTEND Student in an Organized Health Care Education/Training Program
DX: F39 Unspecified mood [affective] disorder (principal); E46 Unspecified protein-calorie malnutrition; Z91.51 Personal history of suicidal behavior; E78.5 Hyperlipidemia, unspecified; I10 Essential (primary) hypertension; Z79.899 Other long term (current) drug therapy; Z88.0 Allergy status to penicillin; D50.9 Iron deficiency anemia, unspecified; J44.9 Chronic obstructive pulmonary disease, unspecified; F17.200 Nicotine dependence, unspecified, uncomplicated; K40.90 Unilateral inguinal hernia, without obstruction or gangrene, not specified as recurrent; F10.20 Alcohol dependence, uncomplicated; T43.202A Poisoning by unspecified antidepressants, intentional self-harm, initial encounter; T46.5X2A Poisoning by other antihypertensive drugs, intentional self-harm, initial encounter

== ENCOUNTER 2023-05-20 18:35 | Emergency (ER) | payer MEDICARE ==
[~2023-05-20 18:35] MED LIST changes: +ALTA1CAP PO; +ATOR1TAB21 PO; +DEPA250T32 PO; +FERR325T3 PO; +PALI1TAB2 PO; +SUCR1ORA PO; +TIOT18INH INH
[2023-05-20 18:49] VITALS: TEMP 97.3
[2023-05-20] MEDS ORDERED: ISOVUE-370 76% 100ML VIAL As Ordered ONE (18:53)
[2023-05-20 19:01] LABS: BASO % 0.4 % (0.0-1.0); EOS # 0.1 10^3/uL (0.0-0.5); EOS % 1.1 % (0.0-3.0); HEMATOCRIT 32.8 % (42.0-52.0); HEMOGLOBIN 9.9 g/dl (13.5-17.5); LYMPH # 0.6 10^3/uL (1.5-5.0); LYMPH % 8.4 % (24.0-44.0); MEAN CORPUSCULAR HGB CONC 30.2 g/dl (32.0-36.5); MEAN CORPUSCULAR VOLUME 89.6 fl (80.0-96.0); MONO # 0.8 10^3/uL (0.0-0.8); MONO % 11.5 % (2.0-8.0); NEUTROPHILS # 5.5 10^3/uL (1.5-8.5); PLATELET COUNT, AUTOMATED 287 10^3/uL (150-450); RED BLOOD COUNT 3.66 10^6/uL (4.30-6.10)
[2023-05-20 19:04] LABS: VENOUS BASE EXCESS -0.7 (-2.0-2.0); VENOUS O2 SATURATION 90.1 % (60.0-80.0); VENOUS PARTIAL PRESSURE CO2 45.7 mmHg (38.0-50.0); VENOUS PARTIAL PRESSURE O2 62.4 mmHg (30.0-50.0); VENOUS PH 7.356 UNITS (7.330-7.430); VENOUS STANDARD HCO3 23.8 MMOL/L; VENOUS TOTAL CO2 26.4 MMOL/L (24.0-28.0)
[2023-05-20 19:14] LABS: INR 1.04; PROTHROMBIN TIME 13.3 SECONDS (12.5-14.5)
[2023-05-20 19:15] LABS: PARTIAL THROMBOPLASTIN TIME 29.1 SECONDS (24.8-34.2)
[2023-05-20 19:23] LABS: LIPASE 20 U/L (12-53)
[2023-05-20 19:24] LABS: ETHYL ALCOHOL (ETHANOL) < 0.003 % (0.000-0.010)
[2023-05-20 19:25] LABS: AMYLASE 38 U/L (30-118)
[2023-05-20 19:26] LABS: ALBUMIN 3.4 G/DL (3.2-5.2); ALKALINE PHOSPHATASE 87 U/L (46-116); ALT/SGPT 30 U/L (7.0-40); AST/SGOT 35 U/L (<34); BILIRUBIN,DIRECT 0.2 MG/DL (<0.4); BILIRUBIN,TOTAL 0.5 MG/DL (0.3-1.2); TOTAL PROTEIN 6.7 G/DL (5.7-8.2)
[2023-05-20] MEDS ORDERED: NS 1,000 ML IV ONE (19:30)
[2023-05-20] MEDS ORDERED: LIDOCAINE W/EPINEPHRINE 1% 20ML VIAL SC ONE (20:05)
[2023-05-20 21:25] VITALS: O2SAT 97
[2023-05-20 21:30] VITALS: BP 138/68
== END 2023-05-20 22:04 | disposition home or self-care (01) ==
LOC: M ED 18:35
DX: S01.111A Laceration without foreign body of right eyelid and periocular area, initial encounter (principal); V89.2XXA Person injured in unspecified motor-vehicle accident, traffic, initial encounter; Y92.410 Unspecified street and highway as the place of occurrence of the external cause; K92.2 Gastrointestinal hemorrhage, unspecified; F17.200 Nicotine dependence, unspecified, uncomplicated
CPT/HCPCS: 12013; 70450; 70486; 71045; 71260; 72125; 72128; 72131; 72170; 74177; 80047; 80076; 82077; 82150; 82803; 83605; 83690; 85025; 85610; 85730; 86850; 86900; 86901; 93005; 93041; 94760; 99285; Q9967

== ENCOUNTER 2023-07-21 09:50 | Inpatient (IN) | payer MEDICARE, MEDICAID ==
[~2023-07-21] VITALS: Ht 177.8 cm; Wt 61.5 kg
[~2023-07-21 09:50] MED LIST changes: -HYDR-3910 PO; -HYDR25TA PO; +HYDR25TA87 PO; +HYDR25TA88 PO
[2023-07-21] MEDS ORDERED: MED REC IN PROGRESS XX SCH (10:20)
[2023-07-21] MEDS ORDERED: LORazepam 2 MG TAB PO PRN (10:25)
[2023-07-21 10:42] LABS: HEMATOCRIT 46.7 % (42.0-52.0); HEMOGLOBIN 14.4 g/dl (13.5-17.5); MEAN CORPUSCULAR HEMOGLOBIN 25.2 pg (27.0-33.0); MEAN CORPUSCULAR HGB CONC 30.8 g/dl (32.0-36.5); MEAN CORPUSCULAR VOLUME 81.8 fl (80.0-96.0); PLATELET COUNT, AUTOMATED 259 10^3/uL (150-450); RED BLOOD COUNT 5.71 10^6/uL (4.30-6.10)
[2023-07-21] MEDS ORDERED: ATOR1TAB21 PO (11:04)
[2023-07-21] MEDS ORDERED: HYDR1CAP25 PO (11:04)
[2023-07-21] MEDS ORDERED: TREL1AER PO (11:04)
[2023-07-21] MEDS ORDERED: SUCR1TA PO (11:04)
[2023-07-21 11:08] LABS: ETHYL ALCOHOL (ETHANOL) 0.008 % (0.000-0.010); VALPROIC ACID (DEPAKOTE) < 3.0 UG/ML (50.0-100.0)
[2023-07-21] MEDS ORDERED: SUCR1ORA PO (11:08)
[2023-07-21 11:10] LABS: ALBUMIN 3.8 G/DL (3.2-5.2); ALKALINE PHOSPHATASE 84 U/L (46-116); ALT/SGPT 18 U/L (7.0-40); AST/SGOT 20 U/L (<34); BILIRUBIN,DIRECT 0.3 MG/DL (<0.4); BILIRUBIN,TOTAL 0.8 MG/DL (0.3-1.2); BLOOD UREA NITROGEN 23 MG/DL (9-23); CALCIUM LEVEL 10.2 MG/DL (8.3-10.6); CARBON DIOXIDE LEVEL 27 MMOL/L (20-31); CHLORIDE LEVEL 101 MMOL/L (98-107); CREATININE FOR GFR 0.95 MG/DL (0.70-1.30); GLOMERULAR FILTRATION RATE > 60.0 (>49); GLUCOSE, FASTING 87 MG/DL (74-106); MAGNESIUM LEVEL 1.8 MG/DL (1.8-2.4); POTASSIUM SERUM 4.1 MMOL/L (3.5-5.1); SALICYLATE LEVEL < 3.0 MG/DL (<30); SODIUM LEVEL 137 MMOL/L (136-145); TOTAL PROTEIN 6.7 G/DL (5.7-8.2)
[2023-07-21 11:11] LABS: THYROID STIMULATING HORMONE 0.965 uIU/ML (0.55-4.78)
[2023-07-21] MEDS ORDERED: HOME MED LIST COMPLETE! XX SCH (11:45)
[2023-07-21 12:04] LABS: AMPHETAMINES LEVEL URINE NEGATIVE (NEGATIVE); BARBITURATES URINE NEGATIVE (NEGATIVE); BENZODIAZEPINES URINE NEGATIVE (NEGATIVE)
[2023-07-21 12:05] LABS: CANNABINOIDS URINE NEGATIVE (NEGATIVE); COCAINE METABOLITE URINE NEGATIVE (NEGATIVE); METHADONE URINE NEGATIVE (NEGATIVE); OPIATES URINE NEGATIVE (NEGATIVE); PHENCYCLIDINE URINE NEGATIVE (NEGATIVE)
[2023-07-21] MEDS: ATORVASTATIN 20 MG TAB PO SCH (12:57)
[2023-07-21] MEDS: FLUoxetine 20MG CAP PO SCH (12:57)
[2023-07-21] MEDS: ramipriL 1.25 MG CAP PO SCH (13:55)
[2023-07-21 14:15] VITALS: BP 105/71; TEMP 97.3; O2SAT 99
[2023-07-21 14:30] VITALS: BP 105/71; TEMP 97.3; O2SAT 99
[2023-07-21] MEDS: traZODone 50 MG TAB PO PRN (21:27)
[2023-07-21] MEDS: THIAMINE 100 MG TAB PO SCH (21:28)
[2023-07-21] MEDS: ACETAMINOPHEN TAB 650MG DOSE (2X325MG) PO PRN (21:30)
[2023-07-22] VITALS (8 sets, daily range): BP systolic 80–112; BP diastolic 50–64; TEMP 97.5–98.8; O2SAT 99
[2023-07-22] MEDS: FOLIC ACID 1MG TAB PO SCH (10:04)
[2023-07-22] MEDS: MULTIVITAMINS/MINERALS THERAP 1 TAB PO SCH (10:04)
[2023-07-22] MEDS: MIDODRINE 5 MG TAB PO SCH (10:55)
[2023-07-22] MEDS: DIVALPROEX 250MG TAB PO SCH (11:49)
[2023-07-22] MEDS: PALIPERIDONE 3MG ER TAB (INVEGA) PO SCH (11:49)
[2023-07-23] MEDS: MOM 30ML SUSPENSION UDC PO PRN (01:46)
[2023-07-23 06:15] VITALS: BP 108/61; TEMP 98.4; O2SAT 99
[2023-07-23 16:39] VITALS: BP 109/59; TEMP 97.6; O2SAT 98
[2023-07-24 06:28] VITALS: BP 109/56; TEMP 98; O2SAT 97
[2023-07-24 08:48] VITALS: BP 84/56
[2023-07-24] MEDS: SUCRALFATE SUSP 1GM/10ML UD PO SCH (11:28)
[2023-07-24 12:02] VITALS: BP 100/64
[2023-07-24] MEDS: FLUoxetine 20MG CAP PO SCH (12:03)
[2023-07-24 16:53] VITALS: BP 123/58; TEMP 98.5; O2SAT 98
[2023-07-24] MEDS: ATORVASTATIN 20 MG TAB PO SCH (21:16)
[2023-07-25 06:25] VITALS: BP 98/53; TEMP 98.7; O2SAT 98
[2023-07-25 18:01] VITALS: BP 83/50; TEMP 98.3; O2SAT 98
[2023-07-25] MEDS: IBUPROFEN 400MG TAB PO PRN (19:51)
[2023-07-25 20:04] VITALS: BP 98/64; TEMP 97.5; O2SAT 97
[2023-07-25 22:03] VITALS: BP 110/74; TEMP 97.8; O2SAT 98
[2023-07-26] MEDS: diphenhydrAMINE 25MG CAP PO PRN (01:36)
[2023-07-26 01:42] VITALS: BP 100/78
[2023-07-26 06:34] VITALS: BP 128/72; TEMP 97.5; O2SAT 100
[2023-07-26] MEDS: FLUoxetine 20MG CAP PO SCH (09:05)
[2023-07-26 09:58] VITALS: BP_SYST 100; BP_SYST 105; BP_SYST 93; BP_DIAS 53; BP_DIAS 55; BP_DIAS 57
[2023-07-26 13:02] VITALS: BP 83/54
[2023-07-26 17:07] VITALS: BP 113/71; TEMP 98.3; O2SAT 97
[2023-07-27 06:12] VITALS: BP 133/60; TEMP 97.8; O2SAT 98
[2023-07-27 16:55] VITALS: BP 102/60; TEMP 97.2; O2SAT 98
[2023-07-27 20:27] VITALS: BP 94/64
[2023-07-27 21:46] VITALS: BP 98/60
[2023-07-28 06:09] VITALS: BP 90/54; TEMP 98.4; O2SAT 97
[2023-07-28 08:21] VITALS: BP 78/50
[2023-07-28 10:01] LABS: BASO % 0.5 % (0.0-1.0); EOS # 0.2 10^3/uL (0.0-0.5); EOS % 2.5 % (0.0-3.0); HEMATOCRIT 37.6 % (42.0-52.0); HEMOGLOBIN 11.5 g/dl (13.5-17.5); LYMPH # 1.9 10^3/uL (1.5-5.0); LYMPH % 31.3 % (24.0-44.0); MEAN CORPUSCULAR HEMOGLOBIN 25.4 pg (27.0-33.0); MEAN CORPUSCULAR HGB CONC 30.6 g/dl (32.0-36.5); MEAN CORPUSCULAR VOLUME 83.2 fl (80.0-96.0); MONO # 0.6 10^3/uL (0.0-0.8); MONO % 9.4 % (2.0-8.0); NEUTROPHILS # 3.3 10^3/uL (1.5-8.5); NEUTROPHILS % 56.1 % (36.0-66.0); PLATELET COUNT, AUTOMATED 240 10^3/uL (150-450); RED BLOOD COUNT 4.52 10^6/uL (4.30-6.10)
[2023-07-28 12:17] VITALS: BP 94/50
[2023-07-28 16:30] VITALS: BP 98/56; TEMP 97.9; O2SAT 97
[2023-07-29 06:34] VITALS: BP 124/71; TEMP 97.2; O2SAT 98
[2023-07-29] MEDS: FLUoxetine 20MG CAP PO SCH (08:29)
[2023-07-29 12:05] VITALS: BP 80/60
[2023-07-29 14:08] VITALS: BP 104/66; TEMP 97; O2SAT 100
[2023-07-29 16:07] VITALS: BP 90/58; TEMP 97.5; O2SAT 99
[2023-07-29] MEDS: traZODone 25MG PER 1/2 TABLET PO PRN (20:01)
[2023-07-30 06:59] VITALS: BP 102/58; TEMP 97.6; O2SAT 98
[2023-07-30 12:15] VITALS: BP 94/58
[2023-07-30 16:33] VITALS: BP 90/64; TEMP 97.5; O2SAT 99
[2023-07-30] MEDS: MAALOX 30 ML SUSP *UDC PO PRN (19:05)
[2023-07-31 06:34] VITALS: BP 115/55; TEMP 97.8; O2SAT 98
[2023-07-31 11:57] VITALS: BP 128/68
[2023-07-31 16:02] VITALS: BP 108/64; TEMP 98.1; O2SAT 98
[2023-08-01 06:34] VITALS: BP 114/60; TEMP 97.3; O2SAT 97
[2023-08-01 18:25] VITALS: BP 100/50; TEMP 98.1; O2SAT 99
[2023-08-01 18:26] VITALS: BP 88/52
[2023-08-01] MEDS: RAMELTEON 8 MG TAB (ROZEREM) PO SCH (20:14)
[2023-08-01] MEDS: DOCUSATE SODIUM 100MG CAPSULE PO PRN (23:40)
[2023-08-02 06:10] VITALS: BP 123/86; TEMP 97.3; O2SAT 99
[2023-08-02 18:34] VITALS: BP 104/68; TEMP 98; O2SAT 98
[2023-08-03 06:49] VITALS: BP 106/51; TEMP 97.1; O2SAT 98
[2023-08-03 18:26] VITALS: BP 100/52; TEMP 98.2
[2023-08-04 06:29] VITALS: BP 82/60; TEMP 97.2; O2SAT 99
[2023-08-04 06:53] VITALS: BP 104/62
[2023-08-04 08:39] VITALS: BP 96/57
[2023-08-04 12:13] VITALS: BP 91/54
[2023-08-04 17:52] VITALS: BP 108/60; TEMP 98.3; O2SAT 99
[2023-08-05 06:16] VITALS: BP 101/50; TEMP 97.7; O2SAT 96
[2023-08-05 11:35] VITALS: BP 98/60
[2023-08-05 15:52] VITALS: BP 100/58; TEMP 97.9; O2SAT 100
[2023-08-06 06:36] VITALS: BP 108/55; TEMP 98.3; O2SAT 96
[2023-08-06 16:03] VITALS: BP 100/60; TEMP 97.8; O2SAT 99
[2023-08-07 06:24] VITALS: BP 92/48; TEMP 98; O2SAT 97
[2023-08-07 16:01] VITALS: TEMP 98.6; O2SAT 98
[2023-08-07 16:42] VITALS: BP 118/70
[2023-08-08 06:17] VITALS: BP 114/77; TEMP 97.2; O2SAT 98
[2023-08-08] MEDS: SIMETHICONE 80MG CHEW TAB PO PRN (15:22)
[2023-08-08 17:03] VITALS: BP 112/58; TEMP 98.2; O2SAT 97
[2023-08-09 06:13] VITALS: BP 143/76; TEMP 98.2; O2SAT 96
[2023-08-09 16:13] VITALS: BP 102/72; TEMP 97.3; O2SAT 99
[2023-08-10 06:26] VITALS: BP 126/58; TEMP 97.7; O2SAT 97
[2023-08-10] MEDS ORDERED: DEPA250T32 PO (07:50)
[2023-08-10] MEDS ORDERED: MIDO5TA PO (07:50)
[2023-08-10] MEDS ORDERED: FLUO20CA22 PO (07:50)
[2023-08-10] MEDS ORDERED: RAME8TAB2 PO (07:50)
[2023-08-10] MEDS ORDERED: COLA100C5 PO (07:50)
[2023-08-10] MEDS ORDERED: PALI1TAB2 PO (07:50)
[2023-08-10] MEDS ORDERED: SIME80TA16 PO (07:50)
== END 2023-08-10 10:04 | DRG 885 ==
LOC: EDBD 09:50 → M ED 09:50 → M ED INP 13:20 → M PSY 14:11
PROVIDERS: ADMIT Student in an Organized Health Care Education/Training Program; ATTEND Student in an Organized Health Care Education/Training Program
PROC: B246ZZZ Ultrasonography of Right and Left Heart (ICD-10-PCS; principal; 2023-07-28)
DX: F31.9 Bipolar disorder, unspecified (principal); R45.851 Suicidal ideations; E46 Unspecified protein-calorie malnutrition; Z68.1 Body mass index [BMI] 19.9 or less, adult; E78.5 Hyperlipidemia, unspecified; I10 Essential (primary) hypertension; F17.200 Nicotine dependence, unspecified, uncomplicated; F10.10 Alcohol abuse, uncomplicated; D50.0 Iron deficiency anemia secondary to blood loss (chronic); K26.9 Duodenal ulcer, unspecified as acute or chronic, without hemorrhage or perforation; J44.9 Chronic obstructive pulmonary disease, unspecified; F12.10 Cannabis abuse, uncomplicated; K40.90 Unilateral inguinal hernia, without obstruction or gangrene, not specified as recurrent; Z91.148 Patient's other noncompliance with medication regimen for other reason; Z79.899 Other long term (current) drug therapy; Z88.0 Allergy status to penicillin; K59.00 Constipation, unspecified; I95.9 Hypotension, unspecified

== ENCOUNTER 2023-09-26 20:41 | Inpatient (IN) | payer MEDICARE, MEDICAID ==
[~2023-09-26] VITALS: Ht 177.8 cm; Wt 66.0 kg
[~2023-09-26 20:41] MED LIST changes: +COLA100C5 PO; +HYDR1CAP25 PO; +MIDO5TA PO; +RAME8TAB2 PO; -RAMI1CAP22; -RAMI1CAP22 PO; -RAMI1CAP24 PO; +RAMI2.5C42; +RAMI2.5C42 PO; +RAMI5CAP60 PO; +SIME80TA16 PO
[2023-09-26 21:03] LABS: BASO # 0.1 10^3/uL (0.0-0.2); BASO % 0.8 % (0.0-1.0); EOS # 0.2 10^3/uL (0.0-0.5); EOS % 2.4 % (0.0-3.0); HEMATOCRIT 43.9 % (42.0-52.0); HEMOGLOBIN 14.1 g/dl (13.5-17.5); LYMPH # 1.7 10^3/uL (1.5-5.0); LYMPH % 26.1 % (24.0-44.0); MEAN CORPUSCULAR HEMOGLOBIN 27.7 pg (27.0-33.0); MEAN CORPUSCULAR HGB CONC 32.1 g/dl (32.0-36.5); MEAN CORPUSCULAR VOLUME 86.2 fl (80.0-96.0); MONO # 0.5 10^3/uL (0.0-0.8); MONO % 7.7 % (2.0-8.0); NEUTROPHILS # 4.2 10^3/uL (1.5-8.5); NEUTROPHILS % 62.7 % (36.0-66.0); PLATELET COUNT, AUTOMATED 239 10^3/uL (150-450); RED BLOOD COUNT 5.09 10^6/uL (4.30-6.10); WHITE BLOOD COUNT 6.6 10^3/uL (4.0-10.0)
[2023-09-26 21:25] LABS: VALPROIC ACID (DEPAKOTE) < 3.0 UG/ML (50.0-100.0)
[2023-09-26 21:26] LABS: ETHYL ALCOHOL (ETHANOL) 0.004 % (0.000-0.010); SALICYLATE LEVEL < 3.0 MG/DL (<30)
[2023-09-26 21:27] LABS: ALBUMIN 3.8 G/DL (3.2-5.2); ALKALINE PHOSPHATASE 87 U/L (46-116); ALT/SGPT 15 U/L (7.0-40); AST/SGOT 22 U/L (<34); BILIRUBIN,DIRECT < 0.1 MG/DL (<0.4); BILIRUBIN,TOTAL 0.6 MG/DL (0.3-1.2); BLOOD UREA NITROGEN 25 MG/DL (9-23); CALCIUM LEVEL 9.5 MG/DL (8.3-10.6); CARBON DIOXIDE LEVEL 25 MMOL/L (20-31); CHLORIDE LEVEL 108 MMOL/L (98-107); CREATININE FOR GFR 0.97 MG/DL (0.70-1.30); GLOMERULAR FILTRATION RATE > 60.0 (>49); GLUCOSE, FASTING 93 MG/DL (74-106); POTASSIUM SERUM 4.1 MMOL/L (3.5-5.1); SODIUM LEVEL 141 MMOL/L (136-145); TOTAL PROTEIN 6.6 G/DL (5.7-8.2)
[2023-09-26 21:31] LABS: THYROID STIMULATING HORMONE 0.518 uIU/ML (0.55-4.78)
[2023-09-26 21:49] LABS: CPK CREATINE PHOSPHOKINASE 43 U/L (46-171)
[2023-09-26 21:54] LABS: ABG BASE EXCESS -2.2 (-2.0-2.0); ABG HCO3 22.2 MMOL/L (22.0-26.0); ABG O2 SATURATION 98.2 % (95.0-99.0); ABG PARTIAL PRESSURE CO2 37.1 mmHg (35.0-45.0); ABG PARTIAL PRESSURE O2 119.1 mmHg (75.0-100.0); ABG STANDARD HCO3 22.7 MMOL/L. (22.0-26.0); ABG TOTAL CO2 23.3 MMOL/L (23.0-31.0); ABG pH (ARTERIAL) 7.395 UNITS (7.350-7.450)
[2023-09-26 22:01] LABS: AMPHETAMINES LEVEL URINE NEGATIVE (NEGATIVE); BARBITURATES URINE NEGATIVE (NEGATIVE); BENZODIAZEPINES URINE NEGATIVE (NEGATIVE); COCAINE METABOLITE URINE NEGATIVE (NEGATIVE); METHADONE URINE NEGATIVE (NEGATIVE); OPIATES URINE NEGATIVE (NEGATIVE); PHENCYCLIDINE URINE NEGATIVE (NEGATIVE)
[2023-09-26 22:12] LABS: CANNABINOIDS URINE POSITIVE (NEGATIVE)
[2023-09-27] MEDS ORDERED: MM S100C PO (11:15)
[2023-09-27] MEDS ORDERED: SIME80CH6 PO (11:15)
[2023-09-27] MEDS ORDERED: TRAZ-252 PO (11:15)
[2023-09-27] MEDS ORDERED: DIVA250T67 PO (11:15)
[2023-09-27] MEDS ORDERED: MIDO5TA PO (11:19)
[2023-09-27] MEDS ORDERED: ROZE8TAB16 PO (11:19)
[2023-09-27] MEDS ORDERED: PALI1TAB2 PO (11:19)
[2023-09-27] MEDS ORDERED: HOME MED LIST COMPLETE! XX SCH (11:20)
[2023-09-27] MEDS: SUCRALFATE SUSP 1GM/10ML UD PO SCH (17:00)
[2023-09-27 18:14] VITALS: BP 160/86; TEMP 97.6; O2SAT 99
[2023-09-27 18:39] VITALS: BP 131/81
[2023-09-27] MEDS: RAMELTEON 8 MG TAB (ROZEREM) PO SCH (21:55)
[2023-09-27] MEDS: DIVALPROEX 250MG TAB PO SCH (21:55)
[2023-09-27] MEDS: ATORVASTATIN 20 MG TAB PO SCH (21:55)
[2023-09-28 06:36] VITALS: BP 135/71; TEMP 96.9; O2SAT 98
[2023-09-28] MEDS: PALIPERIDONE 3MG ER TAB (INVEGA) PO SCH (08:02)
[2023-09-28] MEDS: FLUoxetine 20MG CAP PO SCH (08:03)
[2023-09-28] MEDS ORDERED: MIDODRINE 5 MG TAB PO SCH (16:00)
[2023-09-28 18:31] VITALS: BP_SYST 113; BP_SYST 129; BP_DIAS 61; BP_DIAS 85; TEMP 97.9; TEMP 98.5
[2023-09-28] MEDS: SIMETHICONE 80MG CHEW TAB PO PRN (19:47)
[2023-09-28] MEDS: traZODone 50 MG TAB PO PRN (20:04)
[2023-09-28] MEDS: ADVAIR HFA 115/21MCG INHALER INH SCH (20:04)
[2023-09-29 06:38] VITALS: BP 116/59; TEMP 97.4; O2SAT 97
[2023-09-29] MEDS: MAALOX 30 ML SUSP *UDC PO PRN (11:08)
[2023-09-29 11:25] LABS: CHOLESTEROL RISK RATIO 2.54 (<5); HDL CHOLESTEROL 47.9 MG/DL (>40); LDL CHOLESTEROL 47.3 MG/DL (<100); NON-HDL-C 74.1 MG/DL
[2023-09-29] MEDS: TIOTROPIUM INHALER/CAPSULE (SPIRIVA) INH SCH (13:27)
[2023-09-29 15:58] VITALS: BP 117/62; TEMP 97.4; O2SAT 99
[2023-09-29] MEDS: DOCUSATE SODIUM 100MG CAPSULE PO PRN (20:02)
[2023-09-30 05:38] VITALS: BP 124/72; TEMP 98.1; O2SAT 97
[2023-09-30] MEDS: SUCRALFATE SUSP 1GM/10ML UD PO SCH (07:54)
[2023-09-30] MEDS: ACETAMINOPHEN TAB 650MG DOSE (2X325MG) PO PRN (13:40)
[2023-09-30 16:15] VITALS: BP 104/59; TEMP 98.3; O2SAT 100
[2023-10-01 06:39] VITALS: BP 127/65; TEMP 97.4; O2SAT 97
[2023-10-01 16:13] VITALS: BP 103/61; TEMP 98; O2SAT 98
[2023-10-02 06:34] VITALS: BP 139/73; TEMP 97.8; O2SAT 97
[2023-10-02] MEDS: MOM 30ML SUSPENSION UDC PO PRN (16:11)
[2023-10-02 16:17] VITALS: BP 111/54; TEMP 98.2; O2SAT 98
[2023-10-03 06:18] VITALS: BP 137/61; TEMP 97; O2SAT 99
[2023-10-03 17:22] VITALS: BP 111/54; TEMP 97.9; O2SAT 99
[2023-10-04 06:12] VITALS: BP 133/72; TEMP 98.5; O2SAT 95
[2023-10-04] MEDS: FLUoxetine 20MG CAP PO SCH (09:32)
[2023-10-04 17:25] VITALS: BP 112/55; TEMP 98.2; O2SAT 99
[2023-10-04] MEDS: PALIPERIDONE 3MG ER TAB (INVEGA) PO SCH (20:05)
[2023-10-05 06:14] VITALS: BP 131/63; TEMP 98; O2SAT 95
[2023-10-05 17:11] VITALS: BP 133/61; TEMP 98.3; O2SAT 99
[2023-10-06 06:21] VITALS: BP 107/55; TEMP 98; O2SAT 96
[2023-10-06 16:47] VITALS: BP 117/59; TEMP 98.3; O2SAT 99
[2023-10-07 06:09] VITALS: BP 100/52; TEMP 98.3; O2SAT 96
[2023-10-07] MEDS: TUBERCULIN PPD 5 UNITS/0.1 ML ID ONE (10:12)
[2023-10-07 16:24] VITALS: BP_SYST 110; BP_SYST 122; BP_DIAS 64; BP_DIAS 70; TEMP 97.4; TEMP 97.9; O2SAT 100; O2SAT 98
[2023-10-08 06:12] VITALS: BP 126/60; TEMP 97.4; O2SAT 96
[2023-10-08 14:18] VITALS: BP 107/60; TEMP 97.5; O2SAT 100
[2023-10-09 06:19] VITALS: BP 101/52; TEMP 98.7; O2SAT 97
[2023-10-09] MEDS: PPD DOCUMENTATION ENTRY MISC XX SCH (09:34)
[2023-10-09 16:01] VITALS: BP 107/59; TEMP 98; O2SAT 100
[2023-10-10 06:21] VITALS: BP 132/63; TEMP 98.5; O2SAT 97
[2023-10-10 17:16] VITALS: BP 112/63; TEMP 97.8; O2SAT 98
[2023-10-11 06:11] VITALS: BP 113/55; TEMP 98.1; O2SAT 96
[2023-10-11 16:56] VITALS: BP 125/61; TEMP 98.1; O2SAT 98
[2023-10-12 06:18] VITALS: BP 119/55; TEMP 98; O2SAT 96
[2023-10-12 15:37] VITALS: BP 119/58; TEMP 98; O2SAT 99
[2023-10-13 06:01] VITALS: BP 131/60; TEMP 97.6; O2SAT 95
[2023-10-13] MEDS: FLUoxetine 20MG CAP PO SCH (08:32)
[2023-10-13 15:26] VITALS: BP 105/60; TEMP 97.7; O2SAT 99
[2023-10-14 06:08] VITALS: BP 108/57; TEMP 98.6
[2023-10-14 17:16] VITALS: BP 107/56; TEMP 98; O2SAT 96
[2023-10-15 06:23] VITALS: BP 110/53; TEMP 97.4; O2SAT 96
[2023-10-15 15:48] VITALS: BP 109/60; TEMP 98.2; O2SAT 97
[2023-10-15] MEDS: diphenhydrAMINE 25MG CAP PO PRN (20:21)
[2023-10-16 06:21] VITALS: BP 99/46; TEMP 98.4; O2SAT 96
[2023-10-16 07:34] VITALS: BP 102/72
[2023-10-16 18:09] VITALS: BP 99/60; TEMP 98.2; O2SAT 97
[2023-10-17 06:26] VITALS: BP 112/66; TEMP 97.7; O2SAT 99
[2023-10-17 19:22] VITALS: BP 113/56; TEMP 97.8; O2SAT 98
[2023-10-18 06:16] VITALS: BP 91/50; TEMP 98.6; O2SAT 96
[2023-10-18 10:11] LABS: ALKALINE PHOSPHATASE 65 U/L (46-116); ALT/SGPT 14 U/L (7.0-40); AST/SGOT 12 U/L (<34); BILIRUBIN,TOTAL 0.3 MG/DL (0.3-1.2); BLOOD UREA NITROGEN 19 MG/DL (9-23); CALCIUM LEVEL 9.4 MG/DL (8.3-10.6); CARBON DIOXIDE LEVEL 30 MMOL/L (20-31); CHLORIDE LEVEL 106 MMOL/L (98-107); CREATININE FOR GFR 0.77 MG/DL (0.70-1.30); GLOMERULAR FILTRATION RATE > 60.0 (>49); GLUCOSE, FASTING 82 MG/DL (74-106); POTASSIUM SERUM 4.9 MMOL/L (3.5-5.1); SODIUM LEVEL 141 MMOL/L (136-145)
[2023-10-18 10:13] LABS: THYROID STIMULATING HORMONE 1.109 uIU/ML (0.55-4.78); THYROXINE (T4) 6.7 UG/DL (4.5-10.9)
[2023-10-18 10:32] LABS: T UPTAKE 29.3 % (22.5-37.0)
[2023-10-18 18:28] VITALS: BP 111/58; TEMP 98.3
[2023-10-19 06:32] VITALS: BP 103/58; TEMP 97.3; O2SAT 96
[2023-10-19] MEDS: guaiFENesin ER TABLET 600 MG TAB PO SCH (10:52)
[2023-10-19 18:46] VITALS: BP 150/77; TEMP 97.9
[2023-10-19] MEDS: LITHIUM CARBONATE 150 MG CAP PO SCH (20:02)
[2023-10-20 06:00] VITALS: BP 101/55; TEMP 97.9
[2023-10-20 17:49] VITALS: BP 103/61; TEMP 98; O2SAT 98
[2023-10-21 06:20] VITALS: BP 100/52; TEMP 97.7
[2023-10-21 16:01] VITALS: BP 102/58; TEMP 98.2; O2SAT 98
[2023-10-22 06:19] VITALS: BP 119/60; TEMP 97.2; O2SAT 99
[2023-10-22 09:20] VITALS: BP 88/58
[2023-10-22 11:10] LABS: HEMATOCRIT 35.8 % (42.0-52.0); HEMOGLOBIN 11.4 g/dl (13.5-17.5); MEAN CORPUSCULAR HEMOGLOBIN 28.8 pg (27.0-33.0); MEAN CORPUSCULAR HGB CONC 31.8 g/dl (32.0-36.5); MEAN CORPUSCULAR VOLUME 90.4 fl (80.0-96.0); PLATELET COUNT, AUTOMATED 224 10^3/uL (150-450); RED BLOOD COUNT 3.96 10^6/uL (4.30-6.10); WHITE BLOOD COUNT 7.2 10^3/uL (4.0-10.0)
[2023-10-22 11:30] VITALS: BP 92/52
[2023-10-22 11:35] LABS: ALBUMIN 3.2 G/DL (3.2-5.2); ALKALINE PHOSPHATASE 72 U/L (46-116); ALT/SGPT 16 U/L (7.0-40); AST/SGOT 13 U/L (<34); BILIRUBIN,TOTAL 0.3 MG/DL (0.3-1.2); BLOOD UREA NITROGEN 21 MG/DL (9-23); CALCIUM LEVEL 9.2 MG/DL (8.3-10.6); CARBON DIOXIDE LEVEL 28 MMOL/L (20-31); CHLORIDE LEVEL 105 MMOL/L (98-107); CREATININE FOR GFR 0.76 MG/DL (0.70-1.30); GLOMERULAR FILTRATION RATE > 60.0 (>49); GLUCOSE, FASTING 107 MG/DL (74-106); POTASSIUM SERUM 4.4 MMOL/L (3.5-5.1); SODIUM LEVEL 140 MMOL/L (136-145)
[2023-10-22 15:30] VITALS: BP 107/57; TEMP 98.3; O2SAT 97
[2023-10-22] MEDS: MIDODRINE 5 MG TAB PO SCH (16:06)
[2023-10-22] MEDS: OMEPRAZOLE 20MG CAP PO SCH (21:08)
[2023-10-23 06:28] VITALS: BP 112/62; TEMP 98.3; O2SAT 97
[2023-10-23 07:16] LABS: HEMATOCRIT 36.8 % (42.0-52.0); HEMOGLOBIN 11.6 g/dl (13.5-17.5); MEAN CORPUSCULAR HEMOGLOBIN 28.5 pg (27.0-33.0); MEAN CORPUSCULAR HGB CONC 31.5 g/dl (32.0-36.5); MEAN CORPUSCULAR VOLUME 90.4 fl (80.0-96.0); PLATELET COUNT, AUTOMATED 241 10^3/uL (150-450); RED BLOOD COUNT 4.07 10^6/uL (4.30-6.10)
[2023-10-23 07:43] LABS: CHOLESTEROL RISK RATIO 2.32 (<5); HDL CHOLESTEROL 85.2 MG/DL (>40); LDL CHOLESTEROL 101.2 MG/DL (<100); NON-HDL-C 112.8 MG/DL; PERCENT SATURATION 13.8 % (19.7-50.0)
[2023-10-23 07:46] LABS: FERRITIN 10.1 NG/ML (10.5-307.3); FOLATE 15.28 NG/ML (>5.4)
[2023-10-23 15:27] VITALS: BP 118/62; TEMP 98.5; O2SAT 98
[2023-10-24 06:43] VITALS: BP 107/56; TEMP 98.1; O2SAT 98
[2023-10-24] MEDS: FERROUS SULFATE 325MG TAB PO SCH (08:48)
[2023-10-24 18:00] VITALS: BP 98/56; TEMP 97.7
[2023-10-25 06:17] VITALS: BP 102/70; TEMP 98.8; O2SAT 96
[2023-10-25 18:39] VITALS: BP 110/58; TEMP 97.6
[2023-10-25] MEDS: IBUPROFEN 400MG TAB PO PRN (23:07)
[2023-10-26 06:28] VITALS: BP 159/84; TEMP 98; O2SAT 96
[2023-10-26 18:14] VITALS: BP 128/78; TEMP 98.1
[2023-10-26] MEDS: LITHIUM CARBONATE 300 MG CAP PO SCH (20:23)
[2023-10-26] MEDS: PALIPERIDONE 6MG ER TAB (INVEGA) PO SCH (20:24)
[2023-10-26] MEDS: LORazepam 1 MG TAB PO PRN (23:42)
[2023-10-27 06:34] VITALS: BP 105/59; TEMP 97.7; O2SAT 98
[2023-10-27 18:20] VITALS: BP 122/57; TEMP 98.8
[2023-10-28 06:36] VITALS: BP 120/85; TEMP 97.6; O2SAT 95
[2023-10-28 13:07] VITALS: BP 126/82; TEMP 98.2; O2SAT 97
[2023-10-28] MEDS: CEPACOL LOZENGE PO PRN (13:44)
[2023-10-28 15:32] VITALS: BP 138/84
[2023-10-28] MEDS ORDERED: PILL CUTTER 1 EACH XX PRN (17:05)
[2023-10-29 03:10] LABS: VENOUS BASE EXCESS -0.2 (-2.0-2.0); VENOUS HCO3 25.9 MMOL/L (23.0-27.0); VENOUS O2 SATURATION 43.9 % (60.0-80.0); VENOUS PARTIAL PRESSURE CO2 48.4 mmHg (38.0-50.0); VENOUS PH 7.346 UNITS (7.330-7.430); VENOUS STANDARD HCO3 23.2 MMOL/L; VENOUS TOTAL CO2 27.4 MMOL/L (24.0-28.0)
[2023-10-29 03:18] LABS: BASO % 0.6 % (0.0-1.0); EOS # 0.2 10^3/uL (0.0-0.5); EOS % 3.4 % (0.0-3.0); HEMATOCRIT 34.7 % (42.0-52.0); HEMOGLOBIN 10.8 g/dl (13.5-17.5); LYMPH # 1.2 10^3/uL (1.5-5.0); LYMPH % 17.5 % (24.0-44.0); MEAN CORPUSCULAR HEMOGLOBIN 29.1 pg (27.0-33.0); MEAN CORPUSCULAR HGB CONC 31.1 g/dl (32.0-36.5); MEAN CORPUSCULAR VOLUME 93.5 fl (80.0-96.0); MONO # 0.8 10^3/uL (0.0-0.8); MONO % 11.3 % (2.0-8.0); NEUTROPHILS # 4.6 10^3/uL (1.5-8.5); NEUTROPHILS % 66.9 % (36.0-66.0); PLATELET COUNT, AUTOMATED 236 10^3/uL (150-450); RED BLOOD COUNT 3.71 10^6/uL (4.30-6.10); WHITE BLOOD COUNT 6.8 10^3/uL (4.0-10.0)
[2023-10-29 03:42] LABS: CPK CREATINE PHOSPHOKINASE 234 U/L (46-171)
[2023-10-29 03:43] LABS: ALBUMIN 3.8 G/DL (3.2-5.2); ALKALINE PHOSPHATASE 80 U/L (46-116); ALT/SGPT 21 U/L (7.0-40); AST/SGOT 22 U/L (<34); BILIRUBIN,TOTAL 0.4 MG/DL (0.3-1.2); BLOOD UREA NITROGEN 28 MG/DL (9-23); CALCIUM LEVEL 10.3 MG/DL (8.3-10.6); CARBON DIOXIDE LEVEL 28 MMOL/L (20-31); CHLORIDE LEVEL 106 MMOL/L (98-107); CK-MB VALUE MASS 5.9 NG/ML (<3.6); CREATININE FOR GFR 0.91 MG/DL (0.70-1.30); GLOMERULAR FILTRATION RATE > 60.0 (>49); GLUCOSE, FASTING 100 MG/DL (74-106); MAGNESIUM LEVEL 2.2 MG/DL (1.8-2.4); MB/CK RELATIVE INDEX 2.52 (< OR =4); SODIUM LEVEL 140 MMOL/L (136-145); TOTAL PROTEIN 6.5 G/DL (5.7-8.2)
[2023-10-29 03:58] VITALS: O2SAT 99
[2023-10-29 04:17] LABS: IRON (FE) 29 UG/DL (65-175); PERCENT SATURATION 8.4 % (19.7-50.0); TOTAL IRON BINDING CAPACITY 344 UG/DL (250-425)
[2023-10-29 04:23] LABS: FERRITIN 37.9 NG/ML (10.5-307.3)
[2023-10-29] MEDS ORDERED: MIDODRINE 5 MG TAB PO SCH (08:00)
[2023-10-29] MEDS: MIDODRINE 2.5 MG TAB PO SCH (09:00)
[2023-10-29 12:07] VITALS: BP 122/80
[2023-10-29 16:05] VITALS: BP 129/71; TEMP 97.5; O2SAT 97
[2023-10-29] MEDS: PALIPERIDONE 3MG ER TAB (INVEGA) PO SCH (21:20)
[2023-10-30 06:14] VITALS: BP 115/76; TEMP 97.9; O2SAT 98
[2023-10-30 16:06] VITALS: BP 136/82; TEMP 98.3; O2SAT 98
[2023-10-30] MEDS: diphenhydrAMINE 50MG CAP PO PRN (17:32)
[2023-10-31 00:35] VITALS: BP 97/56; TEMP 98.2; O2SAT 96
[2023-10-31 02:30] VITALS: BP_SYST 145; BP_SYST 153; BP_SYST 154; BP_DIAS 74; BP_DIAS 81; BP_DIAS 87
[2023-10-31 02:33] LABS: VENOUS BASE EXCESS 1.7 (-2.0-2.0); VENOUS HCO3 26.2 MMOL/L (23.0-27.0); VENOUS O2 SATURATION 98.3 % (60.0-80.0); VENOUS PARTIAL PRESSURE CO2 40.8 mmHg (38.0-50.0); VENOUS PH 7.426 UNITS (7.330-7.430); VENOUS TOTAL CO2 27.5 MMOL/L (24.0-28.0)
[2023-10-31] MEDS: MIDODRINE 2.5 MG TAB PO ONE (02:36)
[2023-10-31 02:38] LABS: BASO # 0.1 10^3/uL (0.0-0.2); BASO % 0.7 % (0.0-1.0); EOS # 0.2 10^3/uL (0.0-0.5); EOS % 3.2 % (0.0-3.0); HEMATOCRIT 35.7 % (42.0-52.0); HEMOGLOBIN 11.2 g/dl (13.5-17.5); LYMPH # 1.3 10^3/uL (1.5-5.0); MEAN CORPUSCULAR HGB CONC 31.4 g/dl (32.0-36.5); MEAN CORPUSCULAR VOLUME 92.5 fl (80.0-96.0); MONO # 0.9 10^3/uL (0.0-0.8); MONO % 11.7 % (2.0-8.0); NEUTROPHILS # 5.1 10^3/uL (1.5-8.5); NEUTROPHILS % 67.1 % (36.0-66.0); PLATELET COUNT, AUTOMATED 253 10^3/uL (150-450); RED BLOOD COUNT 3.86 10^6/uL (4.30-6.10); WHITE BLOOD COUNT 7.6 10^3/uL (4.0-10.0)
[2023-10-31 03:05] LABS: LITHIUM LEVEL 0.81 MMOL/L (1.0-1.20)
[2023-10-31 03:06] LABS: ALBUMIN 3.7 G/DL (3.2-5.2); ALKALINE PHOSPHATASE 77 U/L (46-116); ALT/SGPT 24 U/L (7.0-40); AST/SGOT 32 U/L (<34); BILIRUBIN,TOTAL 0.5 MG/DL (0.3-1.2); BLOOD UREA NITROGEN 26 MG/DL (9-23); CALCIUM LEVEL 10.3 MG/DL (8.3-10.6); CARBON DIOXIDE LEVEL 26 MMOL/L (20-31); CHLORIDE LEVEL 108 MMOL/L (98-107); CREATININE FOR GFR 0.97 MG/DL (0.70-1.30); GLOMERULAR FILTRATION RATE > 60.0 (>49); GLUCOSE, FASTING 97 MG/DL (74-106); MAGNESIUM LEVEL 2.5 MG/DL (1.8-2.4); SODIUM LEVEL 141 MMOL/L (136-145); TOTAL PROTEIN 6.8 G/DL (5.7-8.2)
[2023-10-31 06:05] VITALS: BP 122/67; TEMP 97.6; O2SAT 97
[2023-10-31 08:54] VITALS: BP 154/79
[2023-10-31 11:14] VITALS: BP 145/82
[2023-10-31 18:12] VITALS: BP 128/78; TEMP 97.9
[2023-11-01 06:14] VITALS: BP 170/80; TEMP 98.2
[2023-11-01 08:00] VITALS: BP 142/72
[2023-11-01] MEDS: BENZTROPINE 2 MG TAB PO ONE (08:29)
[2023-11-01 11:37] VITALS: BP 134/70; TEMP 97.9; O2SAT 97
== END 2023-11-01 14:12 | DRG 885 ==
LOC: M ED 20:41 → M ED INP 09-27 14:34 → M PSY 09-27 18:11
PROVIDERS: ADMIT Student in an Organized Health Care Education/Training Program; ATTEND Student in an Organized Health Care Education/Training Program
DX: F31.9 Bipolar disorder, unspecified (principal); R45.851 Suicidal ideations; J00 Acute nasopharyngitis [common cold]; E78.5 Hyperlipidemia, unspecified; I10 Essential (primary) hypertension; E86.0 Dehydration; F17.200 Nicotine dependence, unspecified, uncomplicated; R42 Dizziness and giddiness; F10.10 Alcohol abuse, uncomplicated; J44.9 Chronic obstructive pulmonary disease, unspecified; I95.1 Orthostatic hypotension; D50.9 Iron deficiency anemia, unspecified; Z79.899 Other long term (current) drug therapy; Z88.0 Allergy status to penicillin; Z91.148 Patient's other noncompliance with medication regimen for other reason; Z11.52 Encounter for screening for COVID-19; Z63.8 Other specified problems related to primary support group; K27.9 Peptic ulcer, site unspecified, unspecified as acute or chronic, without hemorrhage or perforation; Z91.51 Personal history of suicidal behavior

== ENCOUNTER 2024-01-11 15:18 | Inpatient (IN) | payer MEDICARE, MEDICAID ==
[~2024-01-11] VITALS: Ht 177.8 cm; Wt 68.0 kg
[~2024-01-11 15:18] MED LIST changes: +DIVA250T67 PO; +FLUO-365; +FLUO-365 PO; -FLUO20CA22; -FLUO20CA22 PO; +MM S100C PO; +ROZE8TAB16 PO; +SIME80CH6 PO
[2024-01-11 16:26] LABS: HEMATOCRIT 42.3 % (42.0-52.0); HEMOGLOBIN 13.4 g/dl (13.5-17.5); MEAN CORPUSCULAR HEMOGLOBIN 30.2 pg (27.0-33.0); MEAN CORPUSCULAR HGB CONC 31.7 g/dl (32.0-36.5); MEAN CORPUSCULAR VOLUME 95.3 fl (80.0-96.0); PLATELET COUNT, AUTOMATED 223 10^3/uL (150-450); RED BLOOD COUNT 4.44 10^6/uL (4.30-6.10); WHITE BLOOD COUNT 6.5 10^3/uL (4.0-10.0)
[2024-01-11 16:46] LABS: AMPHETAMINES LEVEL URINE NEGATIVE (NEGATIVE); BARBITURATES URINE NEGATIVE (NEGATIVE); BENZODIAZEPINES URINE NEGATIVE (NEGATIVE); COCAINE METABOLITE URINE NEGATIVE (NEGATIVE)
[2024-01-11 16:47] LABS: CANNABINOIDS URINE NEGATIVE (NEGATIVE); ETHYL ALCOHOL (ETHANOL) < 0.003 % (0.000-0.010); METHADONE URINE NEGATIVE (NEGATIVE); OPIATES URINE NEGATIVE (NEGATIVE); PHENCYCLIDINE URINE NEGATIVE (NEGATIVE)
[2024-01-11 16:49] LABS: ALBUMIN 3.6 G/DL (3.2-5.2); ALKALINE PHOSPHATASE 87 U/L (46-116); ALT/SGPT 21 U/L (7.0-40); AST/SGOT 11 U/L (<34); BILIRUBIN,DIRECT 0.1 MG/DL (<0.4); BILIRUBIN,TOTAL 0.4 MG/DL (0.3-1.2); BLOOD UREA NITROGEN 14 MG/DL (9-23); CALCIUM LEVEL 9.8 MG/DL (8.3-10.6); CARBON DIOXIDE LEVEL 29 MMOL/L (20-31); CHLORIDE LEVEL 106 MMOL/L (98-107); CREATININE FOR GFR 0.97 MG/DL (0.70-1.30); GLOMERULAR FILTRATION RATE > 60.0 (>49); GLUCOSE, FASTING 97 MG/DL (74-106); SALICYLATE LEVEL < 3.0 MG/DL (<30); SODIUM LEVEL 142 MMOL/L (136-145); TOTAL PROTEIN 6.3 G/DL (5.7-8.2)
[2024-01-11 16:53] LABS: THYROID STIMULATING HORMONE 0.494 uIU/ML (0.55-4.78)
[2024-01-11] MEDS ORDERED: LAMO100T3 PO (23:04)
[2024-01-11] MEDS ORDERED: SUCR1TAB56 PO (23:04)
[2024-01-11] MEDS ORDERED: RISP-106 PO (23:04)
[2024-01-11] MEDS ORDERED: MIDO2.5T PO (23:04)
[2024-01-11] MEDS ORDERED: ADV250INH INH (23:04)
[2024-01-11] MEDS ORDERED: FLUO40CA PO (23:04)
[2024-01-11] MEDS ORDERED: PANT40TA29 PO (23:04)
[2024-01-11] MEDS ORDERED: FERR1TAB8 PO (23:04)
[2024-01-11] MEDS ORDERED: FLON1SPR NARES (23:04)
[2024-01-11] MEDS ORDERED: HOME MED LIST COMPLETE! XX SCH (23:15)
[2024-01-12] MEDS ORDERED: NICOTINE 14 MG/24 HR TRANSDERMAL TD SCH (09:00)
[2024-01-12] MEDS ORDERED: OLANZapine ORAL DISINTEGRATING TAB 5MG PO PRN (16:20)
[2024-01-12] MEDS ORDERED: traZODone 50 MG TAB PO PRN (16:20)
[2024-01-12] MEDS ORDERED: MAALOX 30 ML SUSP *UDC PO PRN (16:20)
[2024-01-12] MEDS ORDERED: IBUPROFEN 400MG TAB PO PRN (16:20)
[2024-01-12 17:41] VITALS: BP 144/91; TEMP 97.5; O2SAT 96
[2024-01-13 06:20] VITALS: BP 130/80; TEMP 97.5
[2024-01-13] MEDS: FLUTICASONE PROP 0.05% NASAL SPRAY 16 GM (FLONASE) NARES SCH (09:00)
[2024-01-13] MEDS: ADVAIR HFA 115/21MCG INHALER INH SCH (09:15)
[2024-01-13] MEDS: FLUoxetine 20MG CAP PO SCH (09:15)
[2024-01-13] MEDS: PANTOPRAZOLE 40MG TAB (PROTONIX) PO SCH (09:15)
[2024-01-13] MEDS: FERROUS SULFATE 325MG TAB PO SCH (09:15)
[2024-01-13] MEDS: NICOTINE 14 MG/24 HR TRANSDERMAL TD SCH (10:08)
[2024-01-13 10:47] VITALS: BP_SYST 118; BP_SYST 120; BP_SYST 121; BP_DIAS 57; BP_DIAS 58; BP_DIAS 84
[2024-01-13] MEDS: SUCRALFATE 1 GM TAB PO SCH (12:16)
[2024-01-13 16:43] VITALS: BP 128/56; TEMP 98.1; O2SAT 99
[2024-01-13 18:36] VITALS: BP_SYST 117; BP_SYST 130; BP_SYST 135; BP_DIAS 61; BP_DIAS 70; BP_DIAS 72
[2024-01-13] MEDS: ATORVASTATIN 20 MG TAB PO SCH (21:04)
[2024-01-14 06:31] VITALS: BP 145/82; TEMP 97.9; O2SAT 98
[2024-01-14 07:25] LABS: CHOLESTEROL RISK RATIO 2.92 (<5); HDL CHOLESTEROL 52.7 MG/DL (>40); LDL CHOLESTEROL 81.1 MG/DL (<100); NON-HDL-C 101.3 MG/DL
[2024-01-14] MEDS: MOM 30ML SUSPENSION UDC PO PRN (13:47)
[2024-01-14 17:35] VITALS: BP 140/76; TEMP 97.6; O2SAT 98
[2024-01-14] MEDS: SIMETHICONE 80MG CHEW TAB PO PRN (17:39)
[2024-01-15 06:28] VITALS: BP 158/98; TEMP 97.6; O2SAT 98
[2024-01-15] MEDS: MIRALAX *UNIT DOSE* 17GM PACKET PO SCH (10:40)
[2024-01-15 17:03] VITALS: BP 143/66; TEMP 97.9; O2SAT 100
[2024-01-15] MEDS: traZODone 50 MG TAB PO SCH (20:18)
[2024-01-16 06:21] VITALS: BP 137/65; TEMP 97.4; O2SAT 97
[2024-01-16 19:47] VITALS: BP 129/81; TEMP 97.3
[2024-01-17 06:12] VITALS: BP 110/54; TEMP 98.4; O2SAT 100
[2024-01-17 17:17] VITALS: BP 126/78; TEMP 98.1; O2SAT 98
[2024-01-18 06:11] VITALS: BP 137/69; TEMP 97.7; O2SAT 97
[2024-01-18] MEDS: risperiDONE 3 MG TAB PO SCH (14:41)
[2024-01-18 18:35] VITALS: BP 141/63; TEMP 98.6
[2024-01-19 06:44] VITALS: BP 107/58; TEMP 97.9; O2SAT 98
[2024-01-19 18:20] VITALS: BP 128/71; TEMP 97.9; O2SAT 97
[2024-01-20 06:09] VITALS: BP 149/63; TEMP 97.2; O2SAT 95
[2024-01-20 15:25] VITALS: BP 109/54; TEMP 98.7; O2SAT 97
[2024-01-21 06:32] VITALS: BP 128/69; TEMP 98; O2SAT 97
[2024-01-21 15:59] VITALS: BP 138/80; TEMP 98.2; O2SAT 98
[2024-01-22 06:19] VITALS: BP 138/59; TEMP 97.8; O2SAT 95
[2024-01-23 06:13] VITALS: BP 128/56; TEMP 97.9; O2SAT 100
[2024-01-23 18:32] VITALS: BP 137/68; TEMP 98.1; O2SAT 97
[2024-01-24 06:12] VITALS: BP 113/56; TEMP 97.3; O2SAT 96
[2024-01-24 15:49] VITALS: BP 110/58; TEMP 98; O2SAT 98
[2024-01-25 06:25] VITALS: BP 158/91; TEMP 98.2; O2SAT 96
[2024-01-25 17:15] VITALS: BP 111/56; TEMP 98.2; O2SAT 98
[2024-01-26 06:28] VITALS: BP 144/90; TEMP 98.1; O2SAT 97
[2024-01-26] MEDS ORDERED: FLUoxetine 20MG CAP PO SCH (09:00)
[2024-01-26 17:12] VITALS: BP 144/65; TEMP 98.4; O2SAT 97
[2024-01-27 06:15] VITALS: BP 122/74; TEMP 98.2; O2SAT 97
[2024-01-27] MEDS: FLUoxetine 20MG CAP PO SCH (10:04)
[2024-01-27] MEDS: VENLAFAXINE **XR** 75MG CAPSULE PO SCH (10:06)
[2024-01-27 16:52] VITALS: BP 128/87; TEMP 98; O2SAT 97
[2024-01-27 18:40] LABS: BASO # 0.1 10^3/uL (0.0-0.2); BASO % 0.7 % (0.0-1.0); EOS # 0.2 10^3/uL (0.0-0.5); HEMATOCRIT 41.7 % (42.0-52.0); HEMOGLOBIN 13.6 g/dl (13.5-17.5); LYMPH # 1.8 10^3/uL (1.5-5.0); LYMPH % 25.3 % (24.0-44.0); MEAN CORPUSCULAR HEMOGLOBIN 30.5 pg (27.0-33.0); MEAN CORPUSCULAR HGB CONC 32.6 g/dl (32.0-36.5); MEAN CORPUSCULAR VOLUME 93.5 fl (80.0-96.0); MONO # 0.5 10^3/uL (0.0-0.8); MONO % 7.8 % (2.0-8.0); NEUTROPHILS # 4.4 10^3/uL (1.5-8.5); NEUTROPHILS % 63.1 % (36.0-66.0); PLATELET COUNT, AUTOMATED 224 10^3/uL (150-450); RED BLOOD COUNT 4.46 10^6/uL (4.30-6.10)
[2024-01-27 18:58] LABS: C REACTIVE PROTEIN QUANTITATIV < 0.40 MG/DL (<1.0)
[2024-01-27 18:59] LABS: TOTAL IRON BINDING CAPACITY 329 UG/DL (250-425)
[2024-01-27 19:00] LABS: ALBUMIN 3.5 G/DL (3.2-5.2); ALKALINE PHOSPHATASE 82 U/L (46-116); ALT/SGPT 23 U/L (7.0-40); AST/SGOT 17 U/L (<34); BILIRUBIN,DIRECT < 0.1 MG/DL (<0.4); BILIRUBIN,TOTAL 0.3 MG/DL (0.3-1.2); BLOOD UREA NITROGEN 20 MG/DL (9-23); CALCIUM LEVEL 9.6 MG/DL (8.3-10.6); CARBON DIOXIDE LEVEL 26 MMOL/L (20-31); CHLORIDE LEVEL 106 MMOL/L (98-107); GLOMERULAR FILTRATION RATE > 60.0 (>49); GLUCOSE, FASTING 137 MG/DL (74-106); IRON (FE) 109 UG/DL (65-175); PERCENT SATURATION 33.1 % (19.7-50.0); POTASSIUM SERUM 4.2 MMOL/L (3.5-5.1); SODIUM LEVEL 138 MMOL/L (136-145); TOTAL PROTEIN 6.4 G/DL (5.7-8.2)
[2024-01-27 19:02] LABS: FERRITIN 13.5 NG/ML (10.5-307.3)
[2024-01-27] MEDS: PANTOPRAZOLE 40MG TAB (PROTONIX) PO SCH (22:01)
[2024-01-28 06:35] VITALS: BP 133/76; TEMP 97.1; O2SAT 97
[2024-01-28 18:58] VITALS: BP 118/64; TEMP 98.1
[2024-01-29 06:30] VITALS: BP 137/63; TEMP 97.7; O2SAT 95
[2024-01-29 17:36] VITALS: BP 118/68; TEMP 97.9
[2024-01-30 06:32] VITALS: BP 133/76; TEMP 98.2
[2024-01-30 11:45] LABS: HEMATOCRIT 40.1 % (42.0-52.0); MEAN CORPUSCULAR HEMOGLOBIN 30.6 pg (27.0-33.0); MEAN CORPUSCULAR HGB CONC 32.4 g/dl (32.0-36.5); MEAN CORPUSCULAR VOLUME 94.4 fl (80.0-96.0); PLATELET COUNT, AUTOMATED 214 10^3/uL (150-450); RED BLOOD COUNT 4.25 10^6/uL (4.30-6.10); WHITE BLOOD COUNT 5.6 10^3/uL (4.0-10.0)
[2024-01-30 12:37] LABS: ALBUMIN 3.2 G/DL (3.2-5.2); ALKALINE PHOSPHATASE 76 U/L (46-116); ALT/SGPT 20 U/L (7.0-40); AST/SGOT 12 U/L (<34); BILIRUBIN,TOTAL 0.4 MG/DL (0.3-1.2); BLOOD UREA NITROGEN 18 MG/DL (9-23); CALCIUM LEVEL 9.3 MG/DL (8.3-10.6); CARBON DIOXIDE LEVEL 27 MMOL/L (20-31); CHLORIDE LEVEL 106 MMOL/L (98-107); CREATININE FOR GFR 0.71 MG/DL (0.70-1.30); GLOMERULAR FILTRATION RATE > 60.0 (>49); GLUCOSE, FASTING 113 MG/DL (74-106); SODIUM LEVEL 138 MMOL/L (136-145)
[2024-01-30 15:57] VITALS: BP 121/56; TEMP 98.5; O2SAT 98
[2024-01-31 06:39] VITALS: BP 135/73; TEMP 97.8; O2SAT 97
[2024-01-31 16:10] VITALS: BP 170/88; TEMP 97.9; O2SAT 98
[2024-01-31] MEDS: amLODIPine 5 MG TAB PO ONE (17:35)
[2024-01-31 18:23] VITALS: BP 128/72
[2024-02-01 06:18] VITALS: BP 138/62; TEMP 97.7; O2SAT 97
[2024-02-01] MEDS: ACETAMINOPHEN TAB 650MG DOSE (2X325MG) PO PRN (15:33)
[2024-02-01 15:57] VITALS: BP 102/56; TEMP 97.7; O2SAT 97
[2024-02-02 06:13] VITALS: BP 110/76; TEMP 98.1; O2SAT 96
[2024-02-02] MEDS: RISPERIDONE 1 MG TAB PO ONE (12:42)
[2024-02-02 17:58] VITALS: BP 109/64; TEMP 98
[2024-02-03 06:17] VITALS: BP 132/61; TEMP 97.2; O2SAT 96
[2024-02-03] MEDS: lamoTRIgine 100MG TAB PO SCH (09:18)
[2024-02-03] MEDS: RISPERIDONE 1 MG TAB PO SCH (09:18)
[2024-02-03 16:42] VITALS: BP 110/70; TEMP 97.9; O2SAT 94
[2024-02-04 05:55] VITALS: BP 159/68; TEMP 97.4; O2SAT 96
[2024-02-04 15:42] VITALS: BP 120/80; TEMP 98.2; O2SAT 98
[2024-02-05] MEDS: diphenhydrAMINE 25MG CAP PO PRN (02:13)
[2024-02-05 06:08] VITALS: BP 118/89; TEMP 97.9; O2SAT 98
[2024-02-05] MEDS: RISPERIDONE 1 MG TAB PO SCH (08:45)
[2024-02-05] MEDS: lamoTRIgine 100MG TAB PO SCH (08:46)
[2024-02-05] MEDS: risperiDONE 3 MG TAB PO SCH (08:47)
[2024-02-05 16:36] VITALS: TEMP 98; O2SAT 98
[2024-02-06 06:19] VITALS: BP 142/82; TEMP 98.4; O2SAT 95
[2024-02-06 15:31] VITALS: BP 120/58; TEMP 98; O2SAT 95
[2024-02-07 06:14] VITALS: BP 103/67; TEMP 97; O2SAT 100
[2024-02-07 15:23] VITALS: BP 161/65; TEMP 97.3; O2SAT 95
[2024-02-08] MEDS: NORCO, ANEXSIA 5/325MG TABLET (HYDROcodone/ACETAMINOPHEN) PO PRN (03:09)
[2024-02-08] MEDS: MIRALAX *UNIT DOSE* 17GM PACKET PO PRN (04:47)
[2024-02-08 06:42] VITALS: BP 114/67; TEMP 97.7; O2SAT 94
[2024-02-08 13:35] VITALS: BP 137/83
[2024-02-08 15:04] LABS: BASO % 0.3 % (0.0-1.0); EOS # 0.2 10^3/uL (0.0-0.5); EOS % 2.5 % (0.0-3.0); HEMATOCRIT 41.1 % (42.0-52.0); HEMOGLOBIN 13.1 g/dl (13.5-17.5); LYMPH # 1.3 10^3/uL (1.5-5.0); LYMPH % 19.2 % (24.0-44.0); MEAN CORPUSCULAR HEMOGLOBIN 30.5 pg (27.0-33.0); MEAN CORPUSCULAR HGB CONC 31.9 g/dl (32.0-36.5); MEAN CORPUSCULAR VOLUME 95.6 fl (80.0-96.0); MONO # 0.7 10^3/uL (0.0-0.8); MONO % 10.4 % (2.0-8.0); NEUTROPHILS # 4.6 10^3/uL (1.5-8.5); NEUTROPHILS % 67.5 % (36.0-66.0); PLATELET COUNT, AUTOMATED 222 10^3/uL (150-450); WHITE BLOOD COUNT 6.8 10^3/uL (4.0-10.0)
[2024-02-08 15:16] LABS: INR 1.04; PARTIAL THROMBOPLASTIN TIME 30.4 SECONDS (24.8-34.2); PROTHROMBIN TIME 13.3 SECONDS (12.5-14.5)
[2024-02-08 15:33] LABS: ALBUMIN 3.6 G/DL (3.2-5.2); ALKALINE PHOSPHATASE 88 U/L (46-116); ALT/SGPT 18 U/L (7.0-40); AST/SGOT 16 U/L (<34); BILIRUBIN,TOTAL 0.8 MG/DL (0.3-1.2); BLOOD UREA NITROGEN 25 MG/DL (9-23); CALCIUM LEVEL 9.8 MG/DL (8.3-10.6); CARBON DIOXIDE LEVEL 27 MMOL/L (20-31); CHLORIDE LEVEL 107 MMOL/L (98-107); CPK CREATINE PHOSPHOKINASE 205 U/L (46-171); CREATININE FOR GFR 0.91 MG/DL (0.70-1.30); GLOMERULAR FILTRATION RATE > 60.0 (>49); GLUCOSE, FASTING 102 MG/DL (74-106); MB/CK RELATIVE INDEX 2.43 (< OR =4); POTASSIUM SERUM 4.1 MMOL/L (3.5-5.1); SODIUM LEVEL 141 MMOL/L (136-145); TOTAL PROTEIN 6.7 G/DL (5.7-8.2)
[2024-02-08 16:39] VITALS: BP 141/86; TEMP 97.4; O2SAT 97
[2024-02-08] MEDS ORDERED: ACETAMINOPHEN TAB 650MG DOSE (2X325MG) PO PRN (17:00)
[2024-02-08] MEDS: CEFDINIR 300 MG CAP (OMNICEF) PO SCH (20:35)
[2024-02-09 06:12] VITALS: BP 105/61; TEMP 95.1; O2SAT 94
[2024-02-09] MEDS: risperiDONE 2 MG TAB PO SCH (08:17)
[2024-02-09] MEDS ORDERED: risperiDONE 2 MG TAB PO SCH (09:00)
[2024-02-09] MEDS: ACETAMINOPHEN TAB 650MG DOSE (2X325MG) PO PRN (16:24)
[2024-02-09 17:16] VITALS: BP 124/70; TEMP 97.2; O2SAT 98
[2024-02-10 06:33] VITALS: BP 128/60; TEMP 97.9; O2SAT 98
[2024-02-10 18:34] VITALS: BP 122/78; TEMP 98; O2SAT 98
[2024-02-11 05:46] VITALS: BP 141/82; TEMP 97.8; O2SAT 97
[2024-02-11 15:47] VITALS: BP 128/74; TEMP 97.7; O2SAT 98
[2024-02-12 06:19] VITALS: BP 160/100; TEMP 98.4; O2SAT 94
[2024-02-12 06:45] VITALS: BP 118/84
[2024-02-12 16:40] VITALS: BP 130/73; TEMP 97.8; O2SAT 96
[2024-02-13 05:45] VITALS: BP 128/66; TEMP 97.3; O2SAT 96
[2024-02-13 18:34] VITALS: BP 128/72; TEMP 97.5
[2024-02-14 08:45] VITALS: BP 131/74
[2024-02-14] MEDS ORDERED: PANT40TA29 PO (12:08)
[2024-02-14] MEDS ORDERED: AMLO25TA PO (12:08)
[2024-02-14] MEDS ORDERED: RISP4TAB95 PO ×2 (12:08→23:29)
[2024-02-14] MEDS ORDERED: MM S100C PO (12:08)
[2024-02-14] MEDS ORDERED: MIRA33506 PO (12:08)
[2024-02-14] MEDS ORDERED: VENL75CA47 PO (12:08)
[2024-02-14] MEDS ORDERED: FLON1SPR NARES (12:08)
[2024-02-14] MEDS ORDERED: TRAZ-252 PO ×2 (12:08→23:29)
[2024-02-14] MEDS ORDERED: FERR1TAB8 PO (12:08)
[2024-02-14] MEDS ORDERED: ATOR1TAB21 PO (12:08)
[2024-02-14] MEDS ORDERED: LAMO100T80 PO (12:08)
[2024-02-14] MEDS ORDERED: SUCR1TA PO (12:08)
[2024-02-14] MEDS ORDERED: FLUT1BLS5 INH (23:29)
[2024-02-14] MEDS ORDERED: FERR325T19 PO (23:29)
[2024-02-14] MEDS ORDERED: VENL75CA2 PO (23:29)
[2024-02-14] MEDS ORDERED: AMLO2.5T3 PO (23:29)
[2024-02-14] MEDS ORDERED: MIRA3350 PO (23:30)
== END 2024-02-14 14:38 | disposition home or self-care (01) | DRG 885 ==
LOC: M ED 15:18 → M ED INP 01-12 16:17 → M PSY 01-12 16:51
PROVIDERS: ADMIT Student in an Organized Health Care Education/Training Program; ATTEND Psychiatry & Neurology Child & Adolescent Psychiatry
DX: F25.0 Schizoaffective disorder, bipolar type (principal); R45.851 Suicidal ideations; E46 Unspecified protein-calorie malnutrition; F60.89 Other specific personality disorders; F17.200 Nicotine dependence, unspecified, uncomplicated; J44.9 Chronic obstructive pulmonary disease, unspecified; E78.5 Hyperlipidemia, unspecified; I10 Essential (primary) hypertension; Z79.899 Other long term (current) drug therapy; Z88.0 Allergy status to penicillin; Z11.52 Encounter for screening for COVID-19; Z91.51 Personal history of suicidal behavior; K59.00 Constipation, unspecified; S40.029A Contusion of unspecified upper arm, initial encounter; W19.XXXA Unspecified fall, initial encounter; Y92.231 Patient bathroom in hospital as the place of occurrence of the external cause

== ENCOUNTER 2024-02-14 20:53 | Inpatient (IN) | payer MEDICAID, MEDICARE ==
[~2024-02-14] VITALS: Ht 177.8 cm; Wt 70.1 kg
[~2024-02-14 20:53] MED LIST changes: +ADV250INH INH; +AMLO25TA PO; +FLON1SPR NARES; +LAMO100T3 PO; +LAMO100T80 PO; +MIDO2.5T PO; +MIRA33506 PO; +RISP-106 PO; +RISP4TAB95 PO; +SUCR1TAB56 PO; +VENL75CA47 PO
[2024-02-14 22:50] LABS: HEMATOCRIT 41.7 % (42.0-52.0); HEMOGLOBIN 13.3 g/dl (13.5-17.5); MEAN CORPUSCULAR HEMOGLOBIN 30.6 pg (27.0-33.0); MEAN CORPUSCULAR HGB CONC 31.9 g/dl (32.0-36.5); MEAN CORPUSCULAR VOLUME 96.1 fl (80.0-96.0); PLATELET COUNT, AUTOMATED 269 10^3/uL (150-450); RED BLOOD COUNT 4.34 10^6/uL (4.30-6.10)
[2024-02-14] MEDS ORDERED: FERR325T19 PO (23:29)
[2024-02-14] MEDS ORDERED: VENL75CA2 PO (23:29)
[2024-02-14] MEDS ORDERED: FLUT1BLS5 INH (23:29)
[2024-02-14] MEDS ORDERED: AMLO2.5T3 PO (23:29)
[2024-02-14] MEDS ORDERED: TRAZ-252 PO (23:29)
[2024-02-14] MEDS ORDERED: RISP4TAB95 PO (23:29)
[2024-02-14] MEDS ORDERED: MIRA3350 PO (23:30)
[2024-02-14] MEDS ORDERED: HOME MED LIST COMPLETE! XX SCH (23:30)
[2024-02-14 23:38] LABS: ETHYL ALCOHOL (ETHANOL) < 0.003 % (0.000-0.010)
[2024-02-14 23:40] LABS: ALKALINE PHOSPHATASE 88 U/L (46-116); ALT/SGPT 35 U/L (7.0-40); AST/SGOT 48 U/L (<34); BILIRUBIN,DIRECT 0.2 MG/DL (<0.4); BILIRUBIN,TOTAL 0.7 MG/DL (0.3-1.2); BLOOD UREA NITROGEN 20 MG/DL (9-23); CALCIUM LEVEL 10.1 MG/DL (8.3-10.6); CARBON DIOXIDE LEVEL 26 MMOL/L (20-31); CHLORIDE LEVEL 108 MMOL/L (98-107); CREATININE FOR GFR 1.02 MG/DL (0.70-1.30); GLOMERULAR FILTRATION RATE > 60.0 (>49); GLUCOSE, FASTING 81 MG/DL (74-106); POTASSIUM SERUM 3.6 MMOL/L (3.5-5.1); SALICYLATE LEVEL < 3.0 MG/DL (<30); SODIUM LEVEL 140 MMOL/L (136-145); TOTAL PROTEIN 6.9 G/DL (5.7-8.2)
[2024-02-15 00:04] LABS: THYROID STIMULATING HORMONE 0.624 uIU/ML (0.55-4.78)
[2024-02-15 02:26] LABS: AMPHETAMINES LEVEL URINE NEGATIVE (NEGATIVE); BARBITURATES URINE NEGATIVE (NEGATIVE); BENZODIAZEPINES URINE NEGATIVE (NEGATIVE); COCAINE METABOLITE URINE NEGATIVE (NEGATIVE); METHADONE URINE NEGATIVE (NEGATIVE); OPIATES URINE NEGATIVE (NEGATIVE)
[2024-02-15 02:27] LABS: CANNABINOIDS URINE NEGATIVE (NEGATIVE); PHENCYCLIDINE URINE NEGATIVE (NEGATIVE)
[2024-02-15] MEDS ORDERED: IBUPROFEN 400MG TAB PO PRN (02:55)
[2024-02-15] MEDS ORDERED: diphenhydrAMINE 25MG CAP PO PRN (02:55)
[2024-02-15] MEDS ORDERED: MAALOX 30 ML SUSP *UDC PO PRN (02:55)
[2024-02-15] MEDS: ACETAMINOPHEN TAB 650MG DOSE (2X325MG) PO PRN (09:03)
[2024-02-15] MEDS: PANTOPRAZOLE 40MG TAB (PROTONIX) PO SCH (10:59)
[2024-02-15] MEDS: FERROUS SULFATE 325MG TAB PO SCH (11:00)
[2024-02-15] MEDS: SUCRALFATE 1 GM TAB PO SCH (11:00)
[2024-02-15] MEDS: lamoTRIgine 100MG TAB PO SCH (11:01)
[2024-02-15] MEDS: MIRALAX *UNIT DOSE* 17GM PACKET PO SCH (11:02)
[2024-02-15] MEDS: FLUTICASONE PROP 0.05% NASAL SPRAY 16 GM (FLONASE) NARES SCH (11:40)
[2024-02-15] MEDS: risperiDONE 2 MG TAB PO SCH (12:42)
[2024-02-15] MEDS: VENLAFAXINE **XR** 75MG CAPSULE PO SCH (12:42)
[2024-02-15] MEDS ORDERED: IPRATROPIUM 0.5MG/ALBUTEROL 2.5MG INH SOL UD 3ML (DUONEB) NEB PRN (15:15)
[2024-02-15 16:05] VITALS: BP 149/76; TEMP 98.2
[2024-02-15] MEDS: traZODone 50 MG TAB PO PRN (20:23)
[2024-02-15] MEDS: ADVAIR HFA 115/21MCG INHALER INH SCH (20:23)
[2024-02-15] MEDS: ATORVASTATIN 20 MG TAB PO SCH (20:23)
[2024-02-16 06:38] VITALS: TEMP 98.2
[2024-02-16] MEDS ORDERED: MIRALAX *UNIT DOSE* 17GM PACKET PO PRN (09:10)
[2024-02-16] MEDS: LevoFLOXacin 750 MG TABLET PO SCH (10:23)
[2024-02-16 11:05] VITALS: BP 136/76; O2SAT 96
[2024-02-16 16:46] VITALS: BP 118/64; TEMP 97.8
[2024-02-16] MEDS: NICOTINE 21MG/24HR 1 EA TRANSDERMAL TD SCH (17:35)
[2024-02-17 06:30] VITALS: BP 155/79; TEMP 97.5; O2SAT 96
[2024-02-17] MEDS: NEOSPORIN TOP OINT 15GM TOP SCH (10:21)
[2024-02-17 15:51] VITALS: BP 144/72; TEMP 97.7; O2SAT 95
[2024-02-18 06:02] VITALS: BP 160/80; TEMP 98
[2024-02-18 16:28] VITALS: BP 137/65; TEMP 97.9; O2SAT 97
[2024-02-19] MEDS: MOM 30ML SUSPENSION UDC PO PRN (01:11)
[2024-02-19 06:25] VITALS: BP 143/74; TEMP 97.8; O2SAT 95
[2024-02-19 15:44] VITALS: BP 126/73; TEMP 97.8; O2SAT 96
[2024-02-20 15:37] VITALS: BP 128/71; TEMP 97.9; O2SAT 96
[2024-02-20] MEDS: SIMETHICONE 80MG CHEW TAB PO PRN (17:24)
[2024-02-21 06:16] VITALS: BP 186/98; TEMP 97; O2SAT 98
[2024-02-21 06:20] VITALS: BP 190/110
[2024-02-21] MEDS: **hydrALAZINE** 10 MG TAB PO ONE (06:44)
[2024-02-21 07:45] VITALS: BP 148/88
[2024-02-21 15:39] VITALS: BP 130/66; TEMP 97.7; O2SAT 97
[2024-02-22 06:36] VITALS: BP 130/83; TEMP 97.8; O2SAT 98
[2024-02-22 14:26] VITALS: BP 112/69; TEMP 98; O2SAT 95
[2024-02-23 08:03] VITALS: BP 121/61
[2024-02-23 08:29] VITALS: BP 121/69; O2SAT 98
[2024-02-23 15:15] VITALS: BP 133/69; TEMP 97.4; O2SAT 97
[2024-02-24 06:23] VITALS: BP 125/77; TEMP 97.9; O2SAT 98
[2024-02-24 15:32] VITALS: BP 137/67; TEMP 97.7; O2SAT 96
[2024-02-25 06:23] VITALS: BP 155/86; TEMP 97.2; O2SAT 98
[2024-02-25 16:13] VITALS: BP 122/74; TEMP 98; O2SAT 97
[2024-02-26 16:38] VITALS: BP 140/74; TEMP 97.7; O2SAT 100
[2024-02-27] MEDS ORDERED: NEOM28OI TOP (07:51)
[2024-02-27 09:41] VITALS: BP 126/68
[2024-02-29] MEDS ORDERED: TRAZ-186 PO (11:47)
[2024-02-29] MEDS ORDERED: RISP4TAB95 PO (11:47)
[2024-02-29] MEDS ORDERED: NEOM28OI EXT (11:47)
[2024-02-29] MEDS ORDERED: LAMI1TAB9 PO (11:47)
[2024-02-29] MEDS ORDERED: FLUT1BLS5 IH (11:47)
[2024-02-29] MEDS ORDERED: POLY1POW38 PO (11:47)
[2024-02-29] MEDS ORDERED: FLUT15.820 NARES (11:47)
[2024-02-29] MEDS ORDERED: FERR325T3 PO (11:47)
[2024-02-29] MEDS ORDERED: SIME80CH6 PO (11:47)
[2024-02-29] MEDS ORDERED: PANT40TA29 PO (11:47)
== END 2024-02-27 14:30 | disposition home or self-care (01) | DRG 885 ==
LOC: M ED 20:53 → M ED INP 02-15 02:53 → M PSY 02-15 03:45
PROVIDERS: ADMIT Psychiatry & Neurology Psychiatry; ATTEND Psychiatry & Neurology Psychiatry
DX: F25.0 Schizoaffective disorder, bipolar type (principal); R45.851 Suicidal ideations; N39.0 Urinary tract infection, site not specified; F17.210 Nicotine dependence, cigarettes, uncomplicated; F10.20 Alcohol dependence, uncomplicated; I10 Essential (primary) hypertension; R29.6 Repeated falls; E78.5 Hyperlipidemia, unspecified; D50.9 Iron deficiency anemia, unspecified; S62.306A Unspecified fracture of fifth metacarpal bone, right hand, initial encounter for closed fracture; W19.XXXA Unspecified fall, initial encounter; Y92.9 Unspecified place or not applicable; R41.9 Unspecified symptoms and signs involving cognitive functions and awareness; Y93.9 Activity, unspecified; Y99.8 Other external cause status; R30.0 Dysuria; J44.9 Chronic obstructive pulmonary disease, unspecified; Z79.899 Other long term (current) drug therapy; Z88.0 Allergy status to penicillin; R32 Unspecified urinary incontinence

== ENCOUNTER → 2024-02-28 | Outpatient (CLI) | payer MEDICARE ==
[~2024-02-28] MED LIST changes: +AMLO2.5T3 PO; +FERR325T19 PO; +FLUT15.820 NARES; +FLUT1BLS5 IH; +FLUT1BLS5 INH; +LAMI1TAB9 PO; +MIRA3350 PO; +NEOM28OI EXT; +NEOM28OI TOP; +POLY1POW38 PO; +VENL75CA2 PO
[2024-02-28 14:03] LABS: HEMATOCRIT 45.3 % (42.0-52.0); HEMOGLOBIN 14.3 g/dl (13.5-17.5); MEAN CORPUSCULAR HEMOGLOBIN 30.3 pg (27.0-33.0); MEAN CORPUSCULAR HGB CONC 31.6 g/dl (32.0-36.5); PLATELET COUNT, AUTOMATED 278 10^3/uL (150-450); RED BLOOD COUNT 4.72 10^6/uL (4.30-6.10); WHITE BLOOD COUNT 8.7 10^3/uL (4.0-10.0)
[2024-02-28 14:14] LABS: ERYTHROCYTE SEDIMENTATION RATE 54 mm/hr (0-20)
[2024-02-28 14:29] LABS: ALKALINE PHOSPHATASE 97 U/L (46-116); ALT/SGPT 76 U/L (7.0-40); AST/SGOT 47 U/L (<34); BILIRUBIN,TOTAL 0.5 MG/DL (0.3-1.2); BLOOD UREA NITROGEN 21 MG/DL (9-23); CALCIUM LEVEL 10.3 MG/DL (8.3-10.6); CARBON DIOXIDE LEVEL 27 MMOL/L (20-31); CHLORIDE LEVEL 103 MMOL/L (98-107); CREATININE FOR GFR 0.89 MG/DL (0.70-1.30); GLOMERULAR FILTRATION RATE > 60.0 (>49); GLUCOSE, FASTING 123 MG/DL (74-106); POTASSIUM SERUM 4.2 MMOL/L (3.5-5.1); PROSTATIC SPECIFIC AG MONITOR 1.48 NG/ML (< 4.00); SODIUM LEVEL 138 MMOL/L (136-145); TOTAL PROTEIN 7.4 G/DL (5.7-8.2)
[2024-02-28 14:31] LABS: THYROID STIMULATING HORMONE 0.828 uIU/ML (0.55-4.78)
== END ==
LOC: M RAD 13:08
PROVIDERS: ATTEND Family Medicine
DX: J44.9 Chronic obstructive pulmonary disease, unspecified (principal); D64.9 Anemia, unspecified; R53.83 Other fatigue; Z79.899 Other long term (current) drug therapy